=== PATIENT | male | born 1955 | race Caucasian/White ===

== ENCOUNTER 2022-10-10 10:46 | Inpatient (IN) ==
[2022-10-10 11:32] LABS: Basophils # (auto) 0.04 K/uL (0-0.2); Basophils % (auto) 0.2 %; Eosinophils # (auto) 0.01 K/uL (0-0.50); Eosinophils % (auto) 0.1 %; Hematocrit (blood only) 31.6 % (42.0-52.0); Hemoglobin 10.1 g/dl (14.0-18.0); Immature Granulocytes # (auto) 0.44 K/uL (0.01-0.20); Immature Granulocytes % (auto) 2.3 %; Lymphocytes # (auto) 1.18 K/uL (1.2-3.4); Lymphocytes % (auto) 6.1 %; Mean Corpuscular Hemoglobin 27.2 pg (25.0-34.0); Mean Corpuscular Volume 84.9 fL (80.0-100.0); Mean Platelet Volume 9.1 fL (9.4-12.4); Monocytes # (auto) 1.35 K/uL (0.11-0.59); Neutrophils # (auto) 16.19 K/uL (1.40-6.50); Neutrophils % (auto) 84.3 %; Platelet Count 337 K/uL (130-400); RDW Coefficient of Variation 16.2 % (11.5-14.5); RDW Standard Deviation 48.2 fL (36.4-46.3); Red Blood Count 3.72 M/uL (4.70-6.10); White Blood Count 19.21 K/ul (4.8-10.8)
[2022-10-10 11:44] LABS: INR 1.1 (0.9-1.1); Partial Thromboplastin Time 26.3 Seconds (21.0-31.0); Prothrombin Time 11.7 Seconds (9.0-12.0)
--- NOTE | 2022-10-10 11:45 | XRay Report ---
XR chest 1V not portable HISTORY: 66 years-old Male illness acute illness COMPARISON: None TECHNIQUE: PA view the chest FINDINGS: Cardiomediastinal and hilar silhouettes are within normal limits. No pneumothorax, large pleural effu moiz or overt pulmonary edema. Bilateral pleural-based lesions measure up to 5.4 cm at the left lung base and approximately 6 m and the lateral right hemithorax. Degenerative changes of the shoulders an d spine. IMPRESSION: Indeterminate bilateral pleural based lesions without comparison. Correlation with chest CT is needed. ACT 112: Negative or not required by law. The above report was generated using voice recognition software. It may contain grammatical, syntax o r spelling errors. Electronically signed by: Raghu Mojica M.D. 10/10/2022 11:44 AM
[2022-10-10 12:05] LABS: Albumin Level 2.7 gm/dl (3.4-5.0); Anion Gap 8 (3-11); Bilirubin,Total 0.7 mg/dl (0.2-1.0); Calcium 11.3 mg/dl (8.6-10.3); Carbon Dioxide 30 mmol/L (21-32); Chloride 93 mmol/L (98-107); Potassium 4.4 mmol/L (3.5-5.1); Sodium 131 mmol/L (136-145)
[2022-10-10 12:11] LABS: Alanine Aminotransferase 16 U/L (7-52); Albumin Globulin Ratio 0.7 (0.9-2); Alkaline Phosphatase 176 U/L (34-104); Aspartate Aminotransferase 66 U/L (13-39); BUN Creatinine Ratio 35.4 (10-20); Blood Urea Nitrogen 35 mg/dl (6-23); Est GFR (African American) 92.9 ml/min; Est GFR (Non-African American) 80.2 ml/min; Globulin 4.1 gm/dl (2.5-4.0); Glucose 101 mg/dl (70-99(Fasting)); Total Protein 6.8 gm/dl (6.0-8.3)
[2022-10-10] MEDS ORDERED: SODIUM CHLORIDE 0.9% 1000ML 1,000 ML IV ONE ×2 (13:20→17:36)
[2022-10-10] MEDS ORDERED: ACETAMINOPHEN 1,000 MG/100 ML VIAL IV STA (14:27)
[2022-10-10] MEDS ORDERED: ONDANSETRON INJ 2 MG/ML 2 ML VIAL IV STA (14:31)
[2022-10-10] MEDS ORDERED: FAMOTIDINE 20MG IV PUSH 20 MG/5 ML SYR IV STA (14:31)
[2022-10-10 14:40] LABS: Magnesium 2.1 mg/dl (1.7-2.4)
[2022-10-10 14:45] LABS: Phosphorus 4.2 mg/dl (2.5-4.9)
[2022-10-10] MEDS ORDERED: OPTIRAY 320 500ml IV ONE (15:40)
[2022-10-10 15:48] LABS: Bilirubin Direct 0.2 mg/dl (0-0.2)
--- NOTE | 2022-10-10 16:06 | CT Scan Report ---
CT head/brain wo con CLINICAL HISTORY: 66 years-old Male with confusion, nausea, ?lung mass. Acute nausea with altered me ntal status TECHNIQUE: Multiple axial CT images of the head were obtained without contrast. A dose lowering tech nique was utilized adhering to the principles of ALARA. CT DOSE: 1564.40 mGy.cm COMPARISON: CT cervical spine of same day FINDINGS: No acute intracranial hemorrhage, midline shift, intracranial mass, acute territorial ischemia or abn ormal extra-axial collection. Involutional changes with ventriculomegaly, possibly on an ex vacuo bas is with asymmetric dilation of the left lateral ventricle. Mild white matter hypodensities may repres ent a component of chronic microvascular ischemic disease. The calvarium is intact. No destructive bone lesions identified. The paranasal sinuses, mastoid air c ells, and middle ear cavities are clear. IMPRESSION: No acute intracranial abnormality. ACT 112: Negative or not required by law. The above report was generated using voice recognition software. It may contain grammatical, syntax o r spelling errors. Electronically signed by: Raghu Mojica M.D. 10/10/2022 4:05 PM
--- NOTE | 2022-10-10 16:11 | CT Scan Report ---
CT angio chest PE protocol CLINICAL HISTORY: back pain, sob, r/o PE TECHNIQUE: Multidetector row helical CT of the chest was performed with angiographic protocol. Yu l and sagittal reformations were obtained. Coronal and sagittal MIPS were obtained from the axial keke a set and were submitted for review. Automated dose lowering techniques and/or adjustment according to patient size were utilized for this exam. Comparison: None available at the time of this dictation. FINDINGS: Lungs and pleura: Atelectasis versus scarring is seen in the dependent portions of the lungs. There i s a small right pleural effusion. There is a 4 mm nodule in the lingula (series 8 image 213), 4 mm no dule in the left upper lobe (image 242), and 4 mm nodule in the right upper lobe (image 269). Heart and pericardium: Heart size is normal. No pericardial effusion. Vessels: No evidence of pulmonary embolism. Mediastinum and tk: Unremarkable. Chest wall and lower neck: There is a large, lobular, rim calcified thyroid nodule measuring 64 mm in diameter with rightward displacement of the trachea. Abdomen: For findings below the diaphragm, please refer to CT of the abdomen dated the same. Bones: There is vertebral plana of T6 as well as compression deformities of T2, T7, T10, and T11. Mul tilevel degenerative changes are seen. There are numerous foci in the ribs most prominently including bony destruction with a soft tissue mass measuring 5 mm in the anterior left third rib and a 29 mm s oft tissue mass with bony destruction at the lateral right seventh rib. Multiple foci of lytic diseas e are seen with pathologic fractures, for example the posterior lateral left third rib, the lateral l eft 10th rib, and the right lateral second and third rib. IMPRESSION: 1. No pulmonary embolus is seen. 2. Numerous lytic bony lesions are seen with associated soft tissue masses concerning for osseous me tastases. Please see CT abdomen pelvis performed same day for findings below the diaphragm including right renal soft tissue mass. 3. Large rim calcified thyroid nodule is seen, if not previously evaluated, ultrasound can be perfor med. 4. Additional findings as above. ACT 112: Positive. There are findings on this exam that require communication between the performing entity and the patient following Patient Test Result Information Act ([place] Act 112) guidelines. Electronically signed by: Jaren Lucia M.D. 10/10/2022 4:08 PM
--- NOTE | 2022-10-10 16:16 | CT Scan Report ---
CERVICAL SPINE CT CT DOSE: HISTORY: neck/back pain, ?lung mass TECHNIQUE: Multiaxial CT images of the cervical spine were performed and reformatted in the sagittal and coronal plane without the use of contrast. A dose lowering technique was utilized adhering to e principles of ALARA. COMPARISON: None. FINDINGS: Scattered subcentimeter nodules noted within the lung apices. A peripherally calcified cyst ic left thyroid nodule measuring 6.2 cm. This results in right deviation and mild narrowing of the pr oximal trachea. Prevertebral soft tissues and the C1-C2 interval are intact. There is a 1.4 cm lytic lesion and pathologic fracture involving the left C7 transverse process. No additional fractures iden tified within the cervical spine. Lytic lesion within the T2 vertebral body with a pathologic burst f racture demonstrating up to 50% loss of height centrally. No associated retropulsion. Lytic lesion wi th near complete destruction of the posterior elements of T4. This is only partially imaged on this s tudy. IMPRESSION: 1. Scattered lytic lesions within the lower cervical and thoracic spine consistent with metastatic di sease. 2. Pathologic nondisplaced fracture within the left C7 transverse process. 3. Pathologic burst fracture at T2. No associated retropulsion. 4. A 6.2 cm peripherally calcified cystic left thyroid nodule. ACT 112: Negative or not required by law. Electronically signed by: Mo Martinez M.D. 10/10/2022 4:14 PM
--- NOTE | 2022-10-10 16:28 | CT Scan Report ---
ABDOMEN AND PELVIS CT WITH IV CONTRAST CT DOSE: HISTORY: back pain, weight-loss TECHNIQUE: Multiaxial CT images of the abdomen and pelvis were performed following the use of intrave nous contrast. A dose lowering technique was utilized adhering to the principles of ALARA. COMPARISON STUDY: None. FINDINGS: Pathologic compression fractures at T10 and 11. Multiple scattered lytic lesions seen throu ghout the visualized osseous structures consistent with metastatic disease. There is a mild superior endplate pathologic compression fracture at L4. No associated retropulsion. Paravertebral and epidura l tumor extension within the lower thoracic spine which is partially imaged on this study. Small righ t pleural effusion is noted. No pneumoperitoneum. No pneumatosis. Pathologic fractures of the medial pubic bones which are nondisplaced. Small lytic lesions within the left femoral neck raises the possi bility of an impending fracture. Pathologic fracture within the large destructive lesion of the left iliac wing. Pathologic right anterior rib fractures are noted. Diffuse body wall edema is noted. An i ll-defined 2.4 cm lesion within the central aspects of the liver on image 71. This favors metastatic disease. The spleen, adrenal glands, and pancreas are unremarkable. Normal gallbladder. There is a sm all cyst within the lower pole the left kidney. There is a 3.9 cm the metastatic deposited within the right posterior perinephric space/retroperitoneal which results in destruction of the distal right 1 2th rib. There is a large heterogeneous infiltrative mass within the right kidney resulting in severe right-sided hydronephrosis. This mass also encases the right renal pelvis and proximal right ureter. This mass measures approximately 10 cm and invades into the right perinephric/retroperitoneal soft t issues. Compression versus invasion of the right renal vein. The IVC is compressed. No tumor thrombus identified within the IVC. However, there is thrombus seen within the left common and internal iliac veins best seen on image 238. Metastatic retroperitoneal lymphadenopathy is noted. The bladder is un remarkable. The prostate gland is enlarged. There is a right-sided hydrocele which is partially visua lized. No definite bowel wall thickening or obstruction. IMPRESSION: 1. There is is a large infiltrative right renal mass likely representing the primary malignancy. 2. Extensive metastatic disease as described above with destructive/lytic lesions and multiple pathol ogic fractures. 3. Thrombus of the left common and internal iliac veins. 4. Small lytic lesion within the left femoral neck favor an impending fracture. 5. Please refer to the the same day chest CT for further evaluation of the lung bases. ACT 112: Negative or not required by law. Electronically signed by: Mo Martinez M.D. 10/10/2022 4:25 PM
[2022-10-10] MEDS ORDERED: MoRPHine SULFATE 4 MG/ML 1 ML CARP\\VIAL IV PRN ×2 (16:36→20:30)
[2022-10-10] MEDS ORDERED: MoRPHine SULFATE 2 MG/ML CARP IV PRN (16:36)
[2022-10-10] MEDS ORDERED: cefTRIAXone SODIUM 2,000 MG/70 ML BAG IV STA (16:48)
[2022-10-10] MEDS ORDERED: Heparin IV Adult Wt-Based Standard WITH Bolus Protocol IV STA (16:48)
[2022-10-10 16:54] LABS: Appearance Urine Clear (Clear); Bacteria Urine Automated Negative (Negative); Bilirubin Urine Negative (Negative); Blood Urine Negative (Negative); Color Urine Dark Yellow; Glucose Urine UA Negative (Negative); Ketones Urine Trace (Negative); Leukocyte Esterase Urine Negative (Negative); Nitrite Urine Negative (Negative); Protein Urine 1+ (Negative); RBC Urine Automated 0-4 /hpf (0-4); Specific Gravity Urine 1.024 (1.000-1.030); Urobilinogen Urine Negative (Negative)
[2022-10-10 17:01] LABS: Sperm Urine Present (None Prsent)
--- NOTE | 2022-10-10 17:02 | Emergency Department Note ---
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 PLAN: Disposition: Admit MEDICAL DECISION MAKING: The patient is a 66-year-old gentleman, current alf inmate at [facility] with a history of chronic back pain related to remote trauma per the patient's report who presents to the emergency department via EMS [facility] for evaluation of worsening/progressive unintentional weight loss, acute on chronic back pain and weakness where he has become nonambulatory over the past week. The patient reports he has been unable to walk due to pain in his back and weakness in his legs. He has reportedly developed urinary incontinence over the past week as well. Attempts were made for outpatient testing however due to the rapid decline of the patient over the past week was referred to the emergency department. He denies cough, SOB, vomiting or diarrhea. He reports he has been eating but does not know why he was losing weight. On arrival the patient is fatigued appearing but no acute distress, afebrile stable vital signs. He is cachectic. He has midline tenderness to palpation of the upper and lower T-spine as well as upper lumbar spine. There is no bony crepitus. He exhibits 2/5 strength of bilateral lower extremities. Reflexes within normal limits. There is no clonus. EKG without overt acute ischemia. Chest x-ray with concern for pleural-based masses. WBC 19K with neutrophil predominance and left shift. H/H 10.1/31.6 without prior for comparison. Platelets within normal limits. Chemistry without metabolic acidosis. BUN is 35 with BUN/creatinine> 30 consistent with the patient's clinically dry appearance. Calcium is elevated at 11.3 and AST 66, nonspecific. Lipase is normal. Procalcitonin is elevated 1.38. TSH within normal limits. RNA, ESTEFANIA test was negative. CT of the head, C-spine, chest, abdomen pelvis were performed and demonstrates extensive metastatic disease with spine lesions and pathologic fractures noted with suspicion of primary renal cell carcinoma where there is a large heterogenous infiltrative mass of the right kidney resulting in severe right- sided hydronephrosis with a mass also encases the right renal pelvis and proximal ureter measures approximately 10 cm and invades into the right perinephric retroperitoneal soft tissues. Note is made of a burst fracture at T2 without retropulsion and pathologic fractures at T10 and 11.. Additional note of numerous foci in the ribs with bony destruction with a soft tissue mass measuring 5 mm in the anterior left third rib and 29 mm soft tissue mass with bony description at the lateral right seventh rib. Multiple pathologic fractures are seen including the lateral left third rib, lateral left 10th rib and right lateral second and third ribs. Note is made of superior endplate pathologic compression fracture at L4. Paravertebral and epidural tumor extension within the lower thoracic spine is partially imaged on this study. IVC is noted to be compressed adjacent to the renal mass and there is thrombus seen within the left common and internal iliac veins. Findings of newly diag nosed metastatic disease reviewed with the patient. Given leukocytosis with left shift and elevated procalcitonin ceftriaxone was ordered for possibility of superimposed bacterial pneumonia. Additionally, heparin ordered for iliac vein thrombus. Case was discussed with Becky Whiting PAC with Dr. Perez, [facility] hospitalist, who will evaluate the patient for admission. Case additionally discussed with Dr. Herron, orthopedic spine surgery. Appreciate consultation/recommendation. Given extensive metastatic disease patient is unlikely to be a surgical candidate. He will be available for inpatient team consultation. Given no unstable Cspine fx, no need for C-collar at this time. Pa tient to remain bed rest. Admitting team updated. Triage Nursing notes reviewed and agree them. Prior/outside medical records reviewed Vital Signs: reviewed Differential diagnosis: Musculoskeletal, disc herniation, fracture, metastatic disease, cord compression, discitis, sciatica, cauda equina, infection, aortic disease, renal colic, gastrointestinal, as well as other pathologies. ER treatment provided: See below. Diagnostics interpreted by me: ECG: Sinus tachycardia, 114 bpm, no ectopy, no overt ST elevation or depression, QTc 463, QRS 76 Cardiac Monitoring: An order for continuous cardiac monitoring was placed and demonstrated Sinus tachycardia, 114 bpm, no ectopy. Laboratory studies: See below Imaging studies: See below Consultation(s): Becky Whiting PAC with Dr. Perez, [facility] hospitalist. HPI: The patient is a 66-year-old gentleman, current alf inmate at [facility] with a history of chronic back pain related to remote trauma per the patient's report who presents to the emergency department via EMS [facility] for evaluation of worsening/progressive unintentional weight loss, acute on chronic back pain and weakness where he has become nonambulatory over the past week. The patient reports he has been unable to walk due to pain in his back and weakness in his legs. He has reportedly developed urinary incontinence over the past week as well. Attempts were made for outpatient testing however due to the rapid decline of the patient over the past week was referred to the emergency department. He denies cough, SOB, vomiting or diarrhea. He reports he has been eating but does not know why he was losing weight. ROS: See above HPI for pertinent positives & negatives. A total of 10 systems reviewed and were otherwise negative. VITALS:See Below PHYSICAL EXAMINATION: GENERAL: Awake, alert, fatigued/cachectic-appearing, in no distress HENT: Normocephalic, atraumatic. Oropharynx with dry mucous membranes and otherwise unremarkable. EYES: Normal conjunctiva. Sclera non-icteric. NECK: Supple. No nuchal rigidity. FROM. No JVD. RESPIRATORY: Clear to auscultation. CARDIAC: Regular rate, normal rhythm. Extremities warm and well perfused. Pulses equal. ABDOMEN: Soft, non-distended. No tenderness to palpation. No rebound or guarding. No masses. RECTAL: Deferred. MUSCULOSKELETAL: Chest examination reveals mild bilateral lateral lower CW tenderness. Midline tenderness to palpation of the upper and lower T-spine as well as upper lumbar spine. There is no bony crepitus. LOWER EXTREMITIES: Calves are equal size bilaterally and non-tender. No edema. No discoloration. NEURO: He exhibits 2/5 strength of bilateral lower extremities. 4+/5 strength of BUE. Reflexes within normal limits. There is no clonus. SKIN: No rash or jaundice noted. ED COURSE: Critical Care: I have personally spent greater than 75 minutes of critical care time in the d [facility] management of this patient. This includes bedside care, interpretation of diagnostic studies, and testing, discussion with consultants, patient, and family members, and other required patient management activities. This 75 minutes is in excess of all separately billable procedures. Tyree Heck MD Past Med/Surg History Medical History Chronic back pain History of alcohol use History of tobacco use Surgical History No significant past surgical history Family History Other Cancer Social History Smoking Status: Former smoker Tobacco Type: Cigarettes packs per day: 3; Second Hand Exposure: Yes; Do You Dip or Chew Tobacco: No; Tobacco Cessation Education Requested by Patient: No Hx Alcohol Use: No (former) Hx Substance Use: No Preferred Language: [place] Communication Ability: Effective Tube Tester Required: No Beliefs That Will Affect Care: None Current Living Situation: Other Current Living Situation Comment: JANESSA Delgadillo Other Information That Helps Us Care for You: No Feels Safe at Home: Declines to Answer Assistive Devices: None Allergies Allergies Allergy/AdvReac Type Severity Reaction Status Date / Time No Known Allergies Allergy Verified 10/10/22 15:02 Home Meds Home Medications Medication Instructions Recorded Confirmed No Known Home Medications 10/10/22 10/10/22 Results & Data (ED) Vital Signs Vital Signs - 24 hr 10/10/22 11:01 Temperature 36.8 C Temperature Source Temporal Artery Scan Pulse Rate 106 H Respiratory Rate 18 Respiratory Effort / Characteristics Non-Labored Spontaneous Respiratory Depth Normal Respiratory Pattern Regular Blood Pressure 106/76 Blood Pressure Mean 86 Blood Pressure Position Sitting Pulse Oximetry 97 Oxygen Delivery Method Room Air Sepsis Recent Fever Within 48 Hours No Sepsis New/Unexplained Change in Mental Status No Sepsis Action Taken by Nursing No Action Required Laboratory Data Attestation: I reviewed the patient's lab results. 10/10/22 11:17 10/10/22 11:17 Lab Results 10/10/22 10/10/22 10/10/22 Range/Units 11:17 11:17 11:17 WBC 19.21 H (4.8-10.8) K/ul RBC 3.72 L (4.70-6.10) M/uL Hgb 10.1 L (14.0-18.0) g/dl Hct 31.6 L (42.0-52.0) % MCV 84.9 (80.0-100.0) fL MCH 27.2 (25.0-34.0) pg MCHC 32.0 (32.0-36.0) g/dL RDW Std Deviation 48.2 H (36.4-46.3) fL RDW Coeff of Ana 16.2 H (11.5-14.5) % Plt Count 337 (130-400) K/uL MPV 9.1 L (9.4-12.4) fL Immature Gran % (Auto) 2.3 % Neut % (Auto) 84.3 % Lymph % (Auto) 6.1 % [place] % (Auto) 7.0 % Eos % (Auto) 0.1 % Baso % (Auto) 0.2 % Neut # (Auto) 16.19 H (1.40-6.50) K/uL Lymph # (Auto) 1.18 L (1.2-3.4) K/uL [place] # (Auto) 1.35 H (0.11-0.59) K/uL Eos # (Auto) 0.01 (0-0.50) K/uL Baso # (Auto) 0.04 (0-0.2) K/uL Immature Gran # (Auto) 0.44 H (0.01-0.20) K/uL PT 11.7 (9.0-12.0) Seconds INR 1.1 (0.9-1.1) APTT 26.3 (21.0-31.0) Seconds PTT Ratio 1.0 Sodium 131 L (136-145) mmol/L Potassium 4.4 (3.5-5.1) mmol/L Chloride 93 L (98-107) mmol/L Carbon Dioxide 30 (21-32) mmol/L Anion Gap 8 (3-11) BUN 35 H (6-23) mg/dl Creatinine 0.99 (0.6-1.4) mg/dl Est Cr Clr Drug Dosing Not Reportable Est GFR ( Amer) 92.9 ml/min Est GFR (Non-Af Amer) 80.2 ml/min BUN/Creatinine Ratio 35.4 H (10-20) Glucose 101 H (70-99(Fasting)) mg/dl Lactate (0.4-2.0) mmol/L Calcium 11.3 H (8.6-10.3) mg/dl Phosphorus (2.5-4.9) mg/dl Magnesium (1.7-2.4) mg/dl Total Bilirubin 0.7 (0.2-1.0) mg/dl Direct Bilirubin (0-0.2) mg/dl AST 66 H (13-39) U/L ALT 16 (7-52) U/L Alkaline Phosphatase 176 H (34-104) U/L Total Protein 6.8 (6.0-8.3) gm/dl Albumin 2.7 L (3.4-5.0) gm/dl Globulin 4.1 H (2.5-4.0) gm/dl Albumin/Globulin Ratio 0.7 L (0.9-2) Lipase (11-82) U/L Procalcitonin (0-0.5) ng/ml TSH (0.300-4.500) uIu/ml Urine Color Urine Appearance (Clear) Urine pH (4.5-7.5) Ur Specific [place] (1.000-1.030) Urine Protein (Negative) Urine Glucose (UA) (Negative) Urine Ketones (Negative) Urine Blood (Negative) Urine Nitrite (Negative) Urine Bilirubin (Negative) Urine Urobilinogen (Negative) Ur Leukocyte Esterase (Negative) Urine WBC (Auto) (0-5) /hpf Urine RBC (Auto) (0-4) /hpf U Hyaline Cast (Auto) (0-5) /lpf U Epithel Cells (Auto) (0-5) /lpf Urine Bacteria (Auto) (Negative) Urine Sperm (None Prsent) SARS-CoV-2, RNA, NAAT (NEGATIVE) 10/10/22 10/10/22 10/10/22 Range/Units 13:20 13:20 13:45 WBC (4.8-10.8) K/ul RBC (4.70-6.10) M/uL Hgb (14.0-18.0) g/dl Hct (42.0-52.0) % MCV (80.0-100.0) fL MCH (25.0-34.0) pg MCHC (32.0-36.0) g/dL RDW Std Deviation (36.4-46.3) fL RDW Coeff of Ana (11.5-14.5) % Plt Count (130-400) K/uL MPV (9.4-12.4) fL Immature Gran % (Auto) % Neut % (Auto) % Lymph % (Auto) % [place] % (Auto) % Eos % (Auto) % Baso % (Auto) % Neut # (Auto) (1.40-6.50) K/uL Lymph # (Auto) (1.2-3.4) K/uL [place] # (Auto) (0.11-0.59) K/uL Eos # (Auto) (0-0.50) K/uL Baso # (Auto) (0-0.2) K/uL Immature Gran # (Auto) (0.01-0.20) K/uL PT (9.0-12.0) Seconds INR (0.9-1.1) APTT (21.0-31.0) Seconds PTT Ratio Sodium (136-145) mmol/L Potassium (3.5-5.1) mmol/L Chloride (98-107) mmol/L Carbon Dioxide (21-32) mmol/L Anion Gap (3-11) BUN (6-23) mg/dl Creatinine (0.6-1.4) mg/dl Est Cr Clr Drug Dosing Est GFR ( Amer) ml/min Est GFR (Non-Af Amer) ml/min BUN/Creatinine Ratio (10-20) Glucose (70-99(Fasting)) mg/dl Lactate (0.4-2.0) mmol/L Calcium (8.6-10.3) mg/dl Phosphorus 4.2 (2.5-4.9) mg/dl Magnesium 2.1 (1.7-2.4) mg/dl Total Bilirubin (0.2-1.0) mg/dl Direct Bilirubin (0-0.2) mg/dl AST (13-39) U/L ALT (7-52) U/L Alkaline Phosphatase (34-104) U/L Total Protein (6.0-8.3) gm/dl Albumin (3.4-5.0) gm/dl Globulin (2.5-4.0) gm/dl Albumin/Globulin Ratio (0.9-2) Lipase (11-82) U/L Procalcitonin (0-0.5) ng/ml TSH 3.959 (0.300-4.500) uIu/ml Urine Color Urine Appearance (Clear) Urine pH (4.5-7.5) Ur Specific [place] (1.000-1.030) Urine Protein (Negative) Urine Glucose (UA) (Negative) Urine Ketones (Negative) Urine Blood (Negative) Urine Nitrite (Negative) Urine Bilirubin (Negative) Urine Urobilinogen (Negative) Ur Leukocyte Esterase (Negative) Urine WBC (Auto) (0-5) /hpf Urine RBC (Auto) (0-4) /hpf U Hyaline Cast (Auto) (0-5) /lpf U Epithel Cells (Auto) (0-5) /lpf Urine Bacteria (Auto) (Negative) Urine Sperm (None Prsent) SARS-CoV-2, RNA, NAAT NEGATIVE (NEGATIVE) 10/10/22 10/10/22 10/10/22 Range/Units 14:41 14:41 14:47 WBC (4.8-10.8) K/ul RBC (4.70-6.10) M/uL Hgb (14.0-18.0) g/dl Hct (42.0-52.0) % MCV (80.0-100.0) fL MCH (25.0-34.0) pg MCHC (32.0-36.0) g/dL RDW Std Deviation (36.4-46.3) fL RDW Coeff of Ana (11.5-14.5) % Plt Count (130-400) K/uL MPV (9.4-12.4) fL Immature Gran % (Auto) % Neut % (Auto) % Lymph % (Auto) % [place] % (Auto) % Eos % (Auto) % Baso % (Auto) % Neut # (Auto) (1.40-6.50) K/uL Lymph # (Auto) (1.2-3.4) K/uL [place] # (Auto) (0.11-0.59) K/uL Eos # (Auto) (0-0.50) K/uL Baso # (Auto) (0-0.2) K/uL Immature Gran # (Auto) (0.01-0.20) K/uL PT (9.0-12.0) Seconds INR (0.9-1.1) APTT (21.0-31.0) Seconds PTT Ratio Sodium (136-145) mmol/L Potassium (3.5-5.1) mmol/L Chloride (98-107) mmol/L Carbon Dioxide (21-32) mmol/L Anion Gap (3-11) BUN (6-23) mg/dl Creatinine (0.6-1.4) mg/dl Est Cr Clr Drug Dosing Est GFR ( Amer) ml/min Est GFR (Non-Af Amer) ml/min BUN/Creatinine Ratio (10-20) Glucose (70-99(Fasting)) mg/dl Lactate 3.0 H* (0.4-2.0) mmol/L Calcium (8.6-10.3) mg/dl Phosphorus (2.5-4.9) mg/dl Magnesium (1.7-2.4) mg/dl Total Bilirubin (0.2-1.0) mg/dl Direct Bilirubin 0.2 (0-0.2) mg/dl AST (13-39) U/L ALT (7-52) U/L Alkaline Phosphatase (34-104) U/L Total Protein (6.0-8.3) gm/dl Albumin (3.4-5.0) gm/dl Globulin (2.5-4.0) gm/dl Albumin/Globulin Ratio (0.9-2) Lipase 14 (11-82) U/L Procalcitonin 1.38 H (0-0.5) ng/ml TSH (0.300-4.500) uIu/ml Urine Color Urine Appearance (Clear) Urine pH (4.5-7.5) Ur Specific [place] (1.000-1.030) Urine Protein (Negative) Urine Glucose (UA) (Negative) Urine Ketones (Negative) Urine Blood (Negative) Urine Nitrite (Negative) Urine Bilirubin (Negative) Urine Urobilinogen (Negative) Ur Leukocyte Esterase (Negative) Urine WBC (Auto) (0-5) /hpf Urine RBC (Auto) (0-4) /hpf U Hyaline Cast (Auto) (0-5) /lpf U Epithel Cells (Auto) (0-5) /lpf Urine Bacteria (Auto) (Negative) Urine Sperm (None Prsent) SARS-CoV-2, RNA, NAAT (NEGATIVE) 03/30/23 03/30/23 Range/Units 16:05 17:22 WBC (4.8-10.8) K/ul RBC (4.70-6.10) M/uL Hgb (14.0-18.0) g/dl Hct (42.0-52.0) % MCV (80.0-100.0) fL MCH (25.0-34.0) pg MCHC (32.0-36.0) g/dL RDW Std Deviation (36.4-46.3) fL RDW Coeff of Ana (11.5-14.5) % Plt Count (130-400) K/uL MPV (9.4-12.4) fL Immature Gran % (Auto) % Neut % (Auto) % Lymph % (Auto) % [place] % (Auto) % Eos % (Auto) % Baso % (Auto) % Neut # (Auto) (1.40-6.50) K/uL Lymph # (Auto) (1.2-3.4) K/uL [place] # (Auto) (0.11-0.59) K/uL Eos # (Auto) (0-0.50) K/uL Baso # (Auto) (0-0.2) K/uL Immature Gran # (Auto) (0.01-0.20) K/uL PT (9.0-12.0) Seconds INR (0.9-1.1) APTT (21.0-31.0) Seconds PTT Ratio Sodium (136-145) mmol/L Potassium (3.5-5.1) mmol/L Chloride (98-107) mmol/L Carbon Dioxide (21-32) mmol/L Anion Gap (3-11) BUN (6-23) mg/dl Creatinine (0.6-1.4) mg/dl Est Cr Clr Drug Dosing Est GFR ( Amer) ml/min Est GFR (Non-Af Amer) ml/min BUN/Creatinine Ratio (10-20) Glucose (70-99(Fasting)) mg/dl Lactate 2.7 H* (0.4-2.0) mmol/L Calcium (8.6-10.3) mg/dl Phosphorus (2.5-4.9) mg/dl Magnesium (1.7-2.4) mg/dl Total Bilirubin (0.2-1.0) mg/dl Direct Bilirubin (0-0.2) mg/dl AST (13-39) U/L ALT (7-52) U/L Alkaline Phosphatase (34-104) U/L Total Protein (6.0-8.3) gm/dl Albumin (3.4-5.0) gm/dl Globulin (2.5-4.0) gm/dl Albumin/Globulin Ratio (0.9-2) Lipase (11-82) U/L Procalcitonin (0-0.5) ng/ml TSH (0.300-4.500) uIu/ml Urine Color Dark Yellow Urine Appearance Clear (Clear) Urine pH 5.0 (4.5-7.5) Ur Specific [place] 1.024 (1.000-1.030) Urine Protein 1+ H (Negative) Urine Glucose (UA) Negative (Negative) Urine Ketones Trace H (Negative) Urine Blood Negative (Negative) Urine Nitrite Negative (Negative) Urine Bilirubin Negative (Negative) Urine Urobilinogen Negative (Negative) Ur Leukocyte Esterase Negative (Negative) Urine WBC (Auto) 1-5 (0-5) /hpf Urine RBC (Auto) 0-4 (0-4) /hpf U Hyaline Cast (Auto) 10-30 H (0-5) /lpf U Epithel Cells (Auto) 10-20 H (0-5) /lpf Urine Bacteria (Auto) Negative (Negative) Urine Sperm Present A (None Prsent) SARS-CoV-2, RNA, NAAT (NEGATIVE) Administered Medications Heparin Sodium/Dextrose (Heparin Sodium/Dextrose) 25,000 units in 500 mls @ 21 mls/hr IV .[id number] [facility]; Protocol Stop: 11/09/22 17:14 Last Admin: 10/10/22 18:15 Dose: 1,050 units/hr, 21 mls/hr Documented By: CAITW Co-signed By: ROBLES Piperacillin Sod/Tazobactam (Sod 3.375 gm/ Dextrose) 115 mls @ 28.75 mls/hr IV Q8H [facility]; Protocol Stop: 10/17/22 21:59 Last Admin: 10/10/22 21:34 Dose: 28.8 mls/hr Documented By: FLOR Sodium Chloride (Nss 1000ml) 1,000 mls @ 125 mls/hr IV .Q8H [facility] Stop: 10/11/22 12:29 Last Admin: 10/10/22 21:34 Dose: 125 mls/hr Documented By: FLOR Morphine Sulfate (Morphine Sulfate 4 Mg/Ml 1 Ml Carp\Vial) 2 mg IV Q4H PRN PRN Reason: Pain Stop: 10/24/22 20:29 Last Admin: 10/10/22 21:35 Dose: 2 mg Documented By: FLOR Discontinued Medications Heparin Sodium (Porcine) (Heparin Sod (Porcine) 1000 Unit/Ml) 5,000 units IV NOW ONE Stop: 10/10/22 17:31 Last Admin: 10/10/22 18:14 Dose: 5,000 units Documented By: HUA Co-signed By: ROBLES Sodium Chloride (Nss 1000ml) 1,000 mls @ 999 mls/hr IV .Q1H1M ONE Stop: 10/10/22 14:20 Last Infusion: 10/10/22 14:45 Dose: 0 mls/hr Documented By: Admin: 10/10/22 13:44 Dose: 999 mls/hr Documented By: HUA Acetaminophen (Ofirmev) 1,000 mg in 100 mls @ 400 mls/hr IV NOW STA Stop: 10/10/22 14:41 Last Infusion: 10/10/22 15:04 Dose: 0 mls/hr Documented By: Admin: 10/10/22 14:49 Dose: 400 mls/hr Documented By: HUA Famotidine (Pepcid 20mg Iv Push) 20 mg in 5 mls @ 2.5 mls/min IV NOW STA Stop: 10/10/22 14:32 Last Admin: 10/10/22 14:49 Dose: 2.5 mls/min Documented By: HUA Ceftriaxone Sodium (Rocephin) 2,000 mg in 70 mls @ 140 mls/hr IV NOW STA Stop: 10/10/22 17:17 Last Infusion: 10/10/22 18:20 Dose: 0 mls/hr Documented By: Admin: 10/10/22 17:50 Dose: 140 mls/hr Documented By: ROBLES Sodium Chloride (Nss 1000ml) 1,000 mls @ 999 mls/hr IV .Q1H1M ONE Stop: 10/10/22 18:36 Last Infusion: 10/10/22 18:43 Dose: 0 mls/hr Documented By: Admin: 10/10/22 17:42 Dose: 999 mls/hr Documented By: ROBLES Zoledronic Acid 4 mg/ Sodium (Chloride) 105 mls @ 210 mls/hr IV NOW ONE Stop: 10/10/22 21:14 Last Infusion: 10/10/22 22:22 Dose: 0 mls/hr Documented By: Admin: 10/10/22 21:35 Dose: 210 mls/hr Documented By: FLOR Ioversol (Optiray 320 500ml) 117 ml IV ONCE ONE Stop: 10/10/22 15:41 Last Admin: 10/10/22 15:41 Dose: 117 ml Documented By: GUERDA Morphine Sulfate (Morphine Sulfate 4 Mg/Ml 1 Ml Carp\Vial) 4 mg IV Q2H PRN PRN Reason: Severe Pain (Rating 7,8,9,10) Stop: 10/24/22 16:35 Last Admin: 10/10/22 17:42 Dose: 4 mg Documented By: ROBLES Ondansetron HCl (Ondansetron Inj 2 Mg/Ml 2 Ml Vial) 4 mg IV NOW STA Stop: 10/10/22 14:32 Last Admin: 10/10/22 14:49 Dose: 4 mg Documented By: HUA Imaging Data Radiologist's Impression: Chest X-Ray 10/10/22 11:06 XR chest 1V not portable HISTORY: 66 years-old Male illness acute illness COMPARISON: None TECHNIQUE: PA view the chest FINDINGS: Cardiomediastinal and hilar silhouettes are within normal limits. No pneumothorax, large pleural effusion or overt pulmonary edema. Bilateral pleural-based lesions measure up to 5.4 cm at the left lung base and approximately 6 m and the lateral right hemithorax. Degenerative changes of the shoulders and spine. IMPRESSION: Indeterminate bilateral pleural based lesions without comparison. Correlation with chest CT is needed. ACT 112: Negative or not required by law. The above report was generated using voice recognition software. It may contain grammatical, syntax or spelling errors. Electronically signed by: Raghu Mojica M.D. 10/10/2022 11:44 AM Abdomen/Pelvis CT 10/10/22 14:[address] WITH IV CONTRAST CT DOSE: HISTORY: back pain, weight-loss TECHNIQUE: Multiaxial CT images of the abdomen and pelvis were performed following the use of intravenous contrast. A dose lowering technique was utilized adhering to the principles of ALARA. COMPARISON STUDY: None. FINDINGS: Pathologic compression fractures at T10 and 11. Multiple scattered lytic lesions seen throughout the visualized osseous structures consistent with metastatic disease. There is a mild superior endplate pathologic compression fracture at L4. No associated retropulsion. Paravertebral and epidural tumor extension within the lower thoracic spine which is partially imaged on this study. Small right pleural effusion is noted. No pneumoperitoneum. No pneumatosis. Pathologic fractures of the medial pubic bones which are nondisplaced. Small lytic lesions within the left femoral neck raises the possibility of an impending fracture. Pathologic fracture within the large destructive lesion of the left iliac wing. Pathologic right anterior rib fractures are noted. Diffuse body wall edema is noted. An ill-defined 2.4 cm lesion within the central aspects of the liver on image 71. This favors metastatic disease. The spleen, adrenal glands, and pancreas are unremarkable. Normal gallbladder. There is a small cyst within the lower pole the left kidney. There is a 3.9 cm the metastatic deposited within the right posterior perinephric space/retroperitoneal which results in destruction of the distal right 12th rib. There is a large heterogeneous infiltrative mass within the right kidney resulting in severe right-sided hydronephrosis. This mass also encases the right renal pelvis and proximal right ureter. This mass measures approximately 10 cm and invades into the right perinephric/retroperitoneal soft tissues. Compression versus invasion of the right renal vein. The IVC is compressed. No tumor thrombus identified within the IVC. However, there is thrombus seen within the left common and internal iliac veins best seen on image 238. Metastatic retroperitoneal lymphadenopathy is noted. The bladder is unrema rkable. The prostate gland is enlarged. There is a right-sided hydrocele which is partially visualized. No definite bowel wall thickening or obstruction. IMPRESSION: 1. There is is a large infiltrative right renal mass likely representing the primary malignancy. 2. Extensive metastatic disease as described above with destructive/lytic lesions and multiple pathologic fractures. 3. Thrombus of the left common and internal iliac veins. 4. Small lytic lesion within the left femoral neck favor an impending fracture. 5. Please refer to the the same day chest CT for further evaluation of the lung bases. ACT 112: Negative or not required by law. Electronically signed by: Mo Martinez M.D. 10/10/2022 4:25 PM Chest CTA 10/10/22 14:27 CT angio chest PE protocol CLINICAL HISTORY: back pain, sob, r/o PE TECHNIQUE: Multidetector row helical CT of the chest was performed with angiographic protocol. Coronal and sagittal reformations were obtained. Coronal and sagittal MIPS were obtained from the axial data set and were submitted for review. Automated dose lowering techniques and/or adjustment according to patient size were utilized for this exam. Comparison: None available at the time of this dictation. FINDINGS: Lungs and pleura: Atelectasis versus scarring is seen in the dependent portions of the lungs. There is a small right pleural effusion. There is a 4 mm nodule in the lingula (series 8 image 213), 4 mm nodule in the left upper lobe (image 242), and 4 mm nodule in the right upper lobe (image 269). Heart and pericardium: Heart size is normal. No pericardial effusion. Vessels: No evidence of pulmonary embolism. Mediastinum and tk: Unremarkable. Chest wall and lower neck: There is a large, lobular, rim calcified thyroid nodule measuring 64 mm in diameter with rightward displacement of the trachea. Abdomen: For findings below the diaphragm, please refer to CT of the abdomen dated the same. Bones: There is vertebral plana of T6 as well as compression deformities of T2, T7, T10, and T11. Multilevel degenerative changes are seen. There are numerous foci in the ribs most prominently including bony destruction with a soft tissue mass measuring 5 mm in the anterior left third rib and a 29 mm soft tissue mass with bony destruction at the lateral right seventh rib. Multiple foci of lytic disease are seen with pathologic fractures, for example the posterior lateral left third rib, the lateral left 10th rib, and the right lateral second and third rib. IMPRESSION: 1. No pulmonary embolus is seen. 2. Numerous lytic bony lesions are seen with associated soft tissue masses concerning for osseous metastases. Please see CT abdomen pelvis performed same day for findings below the diaphragm including right renal soft tissue mass. 3. Large rim calcified thyroid nodule is seen, if not previously evaluated, ultrasound can be performed. 4. Additional findings as above. ACT 112: Positive. There are findings on this exam that require communication between the performing entity and the patient following Patient Test Result Information Act ([place] Act 112) guidelines. Electronically signed by: Jaren Lucia M.D. 10/10/2022 4:[address] 10/10/22 14:[address] DOSE: HISTORY: neck/back pain, ?lung mass TECHNIQUE: Multiaxial CT images of the cervical spine were performed and reformatted in the sagittal and coronal plane without the use of contrast. A dose lowering technique was utilized adhering to the principles of ALARA. COMPARISON: None. FINDINGS: Scattered subcentimeter nodules noted within the lung apices. A peripherally calcified cystic left thyroid nodule measuring 6.2 cm. This results in right deviation and mild narrowing of the proximal trachea. Prevertebral soft tissues and the C1-C2 interval are intact. There is a 1.4 cm lytic lesion and pathologic fracture involving the left C7 transverse process. No additional fr actures identified within the cervical spine. Lytic lesion within the T2 vertebral body with a pathologic burst fracture demonstrating up to 50% loss of height centrally. No associated retropulsion. Lytic lesion with near complete destruction of the posterior elements of T4. This is only partially imaged on this study. IMPRESSION: 1. Scattered lytic lesions within the lower cervical and thoracic spine consistent with metastatic disease. 2. Pathologic nondisplaced fracture within the left C7 transverse process. 3. Pathologic burst fracture at T2. No associated retropulsion. 4. A 6.2 cm peripherally calcified cystic left thyroid nodule. ACT 112: Negative or not required by law. Electronically signed by: Mo Martinez M.D. 10/10/2022 4:[address] 10/10/22 14:31 CT head/brain wo con CLINICAL HISTORY: 66 years-old Male with confusion, nausea, ?lung mass. Acute nausea with altered mental status TECHNIQUE: Multiple axial CT images of the head were obtained without contrast. A dose lowering technique was utilized adhering to the principles of ALARA. CT DOSE: 1564.40 mGy.cm COMPARISON: CT cervical spine of same day FINDINGS: No acute intracranial hemorrhage, midline shift, intracranial mass, acute territorial ischemia or abnormal extra-axial collection. Involutional changes with ventriculomegaly, possibly on an ex vacuo basis with asymmetric dilation of the left lateral ventricle. Mild white matter hypodensities may represent a component of chronic microvascular ischemic disease. The calvarium is intact. No destructive bone lesions identified. The paranasal sinuses, mastoid air cells, and middle ear cavities are clear. IMPRESSION: No acute intracranial abnormality. ACT 112: Negative or not required by law. The above report was generated using voice recognition software. It may contain grammatical, syntax or spelling errors. Electronically signed by: Raghu Mojica M.D. 10/10/2022 4:05 PM Discharge Plan Visit Data Chief Complaint: Altered Mental Status Stated Complaint: ALTERED MENTAL STATUS,WEAKNESS ED Provider: Tyree Heck Discharge Problem: Metastatic cancer, Urinary retention, Leukocytosis, Weakness, Acute exacerbation of chronic low back pain, Hypercalcemia, Ambulatory dysfunction, Pathologic rib fracture, Burst fracture of thoracic vertebra, Recent unintentional weight loss over several months, Deep vein thrombosis of iliac vein of left lower extremity Patient Disposition: Admitted As Inpatient Discharge Instructions Interventions: ED Discharge Assessment Last Done: 10/10/22 19:37 Metastatic cancer Qualifiers: Area of secondary neoplastic involvement: bone Qualified Code(s): C79.51 - Secondary malignant neoplasm of bone Deep vein thrombosis of iliac vein of left lower extremity Qualifiers: Chronicity: acute Qualified Code(s): I82.422 - Acute embolism and thrombosis of left iliac vein
[2022-10-10] MEDS ORDERED: HEPARIN SOD (PORCINE) 1000 UNIT/ML IV ONE ×2 (17:04→17:30)
--- NOTE | 2022-10-10 17:12 | History & Physical Report ---
Date of Service October 10, 2022 Assessment & Plan (1) Metastatic cancer: (2) Weakness: (3) Acute exacerbation of chronic low back pain: (4) Ambulatory dysfunction: (5) Pathologic rib fracture: (6) Burst fracture of thoracic vertebra: (7) Hypercalcemia: (8) Urinary retention: (9) Leukocytosis: (10) History of alcohol use: (11) History of tobacco use: Plan This is a 66-year-old male from [facility] with PMH of chronic back pain who presents for evaluation of worsening acute on chronic back pain, weakness, ambulatory dysfunction over the past week and was found to have extensive metastatic cancer with likely renal mass as primary malignancy. Worsening weakness Acute on chronic back pain Extensive metastatic cancer with likely renal mass as primary malignancy In setting of worsening back pain, ambulatory dysfunction, weakness Extensive metastatic disease with destructive/lytic lesions and multiple pathologic fractures, soft tissue involvement CT abd/pelvis with * a large infiltrative right renal mass likely representing the primary malignancy * extensive metastatic disease as described above with destructive/lytic lesions and multiple pathologic fractures * thrombus of the left common and internal iliac veins * small lytic lesion within the left femoral neck favor an impending fracture Chest CTA with numerous lytic bony lesions are seen with associated soft tissue masses concerning for osseous metastases. Large rim calcified thyroid nodule is seen, if not previously evaluated, ultrasound can be performed Consulted heme onc and palliative services for extensive new cancer diagnosis, prognosis and goals/treatment Pain control for multiple pathologic fractures Bed bound status until able to be evaluated by ortho spine Continue IV heparin for thrombus of L common and internal iliac veins. May need vascular input during admission. Monitor closely for any acute bleeding Considered tumor lysis syndrome given extensive disease but no lyte abnormalities c/w syndrome - continue to monitor T2 pathologic burst fracture Cervical spine CT with * Scattered lytic lesions within the lower cervical and thoracic spine consistent with metastatic disease. * Pathologic nondisplaced fracture within the left C7 transverse process. * Pathologic burst fracture at T2. No associated retropulsion. * A 6.2 cm peripherally calcified cystic left thyroid nodule. ED provider discussed case with Dr. Herron given T2 burst fracture - feels patient is an unlikely surgical candidate given extent of disease. No need for C-collar, bed rest, sit up as comfortable, will evaluate tomorrow Hypercalcemia In setting of metastatic cancer with multiple lytic lesions, also dehydration likely a component Serum calcium 11.3, obtain ionized calcium in a.m. Given 1 time dose of zolendronic acid Hypercalcemia work-up in process Urinary retention Urinary retention noted on imaging, hydronephrosis in setting of large right renal mass Urias catheter placed, monitor output Leukocytosis Meeting SIRs criteria with WBC 19k, HR 105, lactate 3, procal of 1.38 but no clear infectious source Could be reactive given extensive cancer burden, dehydration Covering with empiric Zosyn, follow blood culture History of significant tobacco use, alcohol use Endorses smoking 3 packs/day prior to time and JANESSA Delgadillo, unable to characterize length of time smoking. Also endorsing heavy alcohol use in the past DVT Ppx: IV heparin Code status: Full code PCP: JANESSA Delgadillo Dispo: Admitted to PCU Patient seen in collaboration with Dr. Perez. Please see addendum. I spent a total of 80 minutes coordinating, documenting, and providing care for this patient excluding time spent in the performance of separately billed services. History of Present Illness Chief Complaint: Ambulatory dysfunction, weight loss Primary Care Provider: JANESSA Delgadillo This is a 66-year-old male from [facility] with PMH of chronic back pain who presents for evaluation of worsening acute on chronic back pain, weakness, ambulatory dysfunction over the past week. Patient is a poor historian. States he has had back pain for decades but it got worse over the past year. Also endorses associated weakness and unintentional weight loss over the past year. States he has lost 100 pounds but cannot clarify the time in which this occurred. Has intermittent hematuria but states this has been going on for years. Over the past week, weakness has become more profound to the point that patient is having to grab onto guerrero to get around. Denies any falls. Was going to have outpatient testing done but due to significant decline, was brought in from [facility] for further evaluation. Significant history of smoking 3 packs/day but cannot answer when he started or stopped smoking. Also has history of heavy alcohol use prior to time in group home. Endorses some issues with urinary retention but denies dysuria. No fever, chills, lightheadedness, chest pain, shortness of breath, nausea, vomiting, abdominal pain, dysuria, diarrhea or constipation. Became tearful during interview on multiple occasions. Denies any known past medical history of diabetes, high blood pressure, stroke, cancer or kidney disease. Knows that cancer runs in his family but not sure what kind. Allergies Allergy/AdvReac Type Severity Reaction Status Date / Time No Known Allergies Allergy Verified 10/10/22 15:02 Home Medications Medication Instructions Recorded Confirmed Type No Known Home Medications 10/10/22 10/10/22 History Past Med/Surg History Medical History Chronic back pain History of alcohol use History of tobacco use Surgical History No significant past surgical history Family History Other Cancer Social History Smoking Status: Former smoker Tobacco Type: Cigarettes packs per day: 3; Hx Alcohol Use: Yes (heavy use in the past ) Preferred Language: Czech Review of Systems Review of Systems: At least ten systems reviewed and negative except as noted in the HPI. Physical Exam Physical Exam: Please see Dr. Perez's addendum for physical exam. Results & Data Results & Data Vital Signs (Past 12 Hours) Vital Signs Temp Pulse Resp BP Pulse Ox O2 Del Method 10/10/22 11:01 36.8 C 106 H 18 106/76 97 Room Air Laboratory Results Short CBC 10/10/22 Range/Units 11:17 WBC 19.21 H (4.8-10.8) K/ul Hgb 10.1 L (14.0-18.0) g/dl Hct 31.6 L (42.0-52.0) % Plt Count 337 (130-400) K/uL BMP 10/10/22 11:17 Sodium 131 L Potassium 4.4 Chloride 93 L Carbon Dioxide 30 BUN 35 H Creatinine 0.99 Glucose 101 H Calcium 11.3 H Liver Function 10/10/22 10/10/22 Range/Units 11:17 14:41 Total Bilirubin 0.7 (0.2-1.0) mg/dl Direct Bilirubin 0.2 (0-0.2) mg/dl AST 66 H (13-39) U/L ALT 16 (7-52) U/L Alkaline Phosphatase 176 H (34-104) U/L Albumin 2.7 L (3.4-5.0) gm/dl Urine 10/10/22 Range/Units 16:05 Urine Color Dark Yellow Urine Appearance Clear (Clear) Urine pH 5.0 (4.5-7.5) Ur Specific [place] 1.024 (1.000-1.030) Urine Protein 1+ H (Negative) Urine Glucose (UA) Negative (Negative) Diagnostic Findings Chest X-Ray 10/10/22 11:06 XR chest 1V not portable HISTORY: 66 years-old Male illness acute illness COMPARISON: None TECHNIQUE: PA view the chest FINDINGS: Cardiomediastinal and hilar silhouettes are within normal limits. No pneumothorax, large pleural effusion or overt pulmonary edema. Bilateral pleural-based lesions measure up to 5.4 cm at the left lung base and approximately 6 m and the lateral right hemithorax. Degenerative changes of the shoulders and spine. IMPRESSION: Indeterminate bilateral pleural based lesions without comparison. Correlation with chest CT is needed. ACT 112: Negative or not required by law. The above report was generated using voice recognition software. It may contain grammatical, syntax or spelling errors. Electronically signed by: Raghu Mojica M.D. 10/10/2022 11:44 AM Abdomen/Pelvis CT 10/10/22 14:[address] WITH IV CONTRAST CT DOSE: HISTORY: back pain, weight-loss TECHNIQUE: Multiaxial CT images of the abdomen and pelvis were performed following the use of intravenous contrast. A dose lowering technique was utilized adhering to the principles of ALARA. COMPARISON STUDY: None. FINDINGS: Pathologic compression fractures at T10 and 11. Multiple scattered lytic lesions seen throughout the visualized osseous structures consistent with metastatic disease. There is a mild superior endplate pathologic compression fracture at L4. No associated retropulsion. Paravertebral and epidural tumor extension within the lower thoracic spine which is partially imaged on this study. Small right pleural effusion is noted. No pneumoperitoneum. No pneumatosis. Pathologic fractures of the medial pubic bones which are nondisplaced. Small lytic lesions within the left femoral neck raises the p ossibility of an impending fracture. Pathologic fracture within the large destructive lesion of the left iliac wing. Pathologic right anterior rib fractures are noted. Diffuse body wall edema is noted. An ill-defined 2.4 cm lesion within the central aspects of the liver on image 71. This favors metastatic disease. The spleen, adrenal glands, and pancreas are unremarkable. Normal gallbladder. There is a small cyst within the lower pole the left kidney. There is a 3.9 cm the metastatic deposited within the right posterior perinephric space/retroperitoneal which results in destruction of the distal right 12th rib. There is a large heterogeneous infiltrative mass within the right kidney resulting in severe right-sided hydronephrosis. This mass also encases the right renal pelvis and proximal right ureter. This mass measures approximately 10 cm and invades into the right perinephric/retroperitoneal soft tissues. Compression versus invasion of the right renal vein. The IVC is compressed. No tumor thrombus identified within the IVC. However, there is thrombus seen within the left common and internal iliac veins best seen on image 238. Metastatic retroperitoneal lymphadenopathy is noted. The bladder is unremarkable. The prostate gland is enlarged. There is a right-sided hydrocele which is partially visualized. No definite bowel wall thickening or obstruction. IMPRESSION: 1. There is is a large infiltrative right renal mass likely representing the primary malignancy. 2. Extensive metastatic disease as described above with destructive/lytic lesions and multiple pathologic fractures. 3. Thrombus of the left common and internal iliac veins. 4. Small lytic lesion within the left femoral neck favor an impending fracture. 5. Please refer to the the same day chest CT for further evaluation of the lung bases. ACT 112: Negative or not required by law. Electronically signed by: Mo Martinez M.D. 10/10/2022 4:25 PM Chest CTA 10/10/22 14:27 CT angio chest PE protocol CLINICAL HISTORY: back pain, sob, r/o PE TECHNIQUE: Multidetector row helical CT of the chest was performed with angiographic protocol. Coronal and sagittal reformations were obtained. Coronal and sagittal MIPS were obtained from the axial data set and were submitted for review. Automated dose lowering techniques and/or adjustment according to patient size were utilized for this exam. Comparison: None available at the time of this dictation. FINDINGS: Lungs and pleura: Atelectasis versus scarring is seen in the dependent portions of the lungs. There is a small right pleural effusion. There is a 4 mm nodule in the lingula (series 8 image 213), 4 mm nodule in the left upper lobe (image 242), and 4 mm nodule in the right upper lobe (image 269). Heart and pericardium: Heart size is normal. No pericardial effusion. Vessels: No evidence of pulmonary embolism. Mediastinum and tk: Unremarkable. Chest wall and lower neck: There is a large, lobular, rim calcified thyroid nodule measuring 64 mm in diameter with rightward displacement of the trachea. Abdomen: For findings below the diaphragm, please refer to CT of the abdomen dated the same. Bones: There is vertebral plana of T6 as well as compression deformities of T2, T7, T10, and T11. Multilevel degenerative changes are seen. There are numerous foci in the ribs most prominently including bony destruction with a soft tissue mass measuring 5 mm in the anterior left third rib and a 29 mm soft tissue mass with bony destruction at the lateral right seventh rib. Multiple foci of lytic disease are seen with pathologic fractures, for example the posterior lateral left third rib, the lateral left 10th rib, and the right lateral second and third rib. IMPRESSION: 1. No pulmonary embolus is seen. 2. Numerous lytic bony lesions are seen with associated soft tissue masses concerning for osseous metastases. Please see CT abdomen pelvis performed same day for findings below the diaphragm including right renal soft tissue mass. 3. Large rim calcified thyroid nodule is seen, if not previously evaluated, ultrasound can be performed. 4. Additional findings as above. ACT 112: Positive. There are findings on this exam that require communication between the performing entity and the patient following Patient Test Result Information Act ([place] Act 112) guidelines. Electronically signed by: Jaren Lucia M.D. 10/10/2022 4:[address] 10/10/22 14:[address] DOSE: HISTORY: neck/back pain, ?lung mass TECHNIQUE: Multiaxial CT images of the cervical spine were performed and reformatted in the sagittal and coronal plane without the use of contrast. A dose lowering technique was utilized adhering to the principles of ALARA. COMPARISON: None. FINDINGS: Scattered subcentimeter nodules noted within the lung apices. A peripherally calcified cystic left thyroid nodule measuring 6.2 cm. This results in right deviation and mild narrowing of the proximal trachea. Prevertebral soft tissues and the C1-C2 interval are intact. There is a 1.4 cm lytic lesion and pathologic fracture involving the left C7 transverse process. No additional fractures identified within the cervical spine. Lytic lesion within the T2 vertebral body with a pathologic burst fracture demonstrating up to 50% loss of height centrally. No associated retropulsion. Lytic lesion with near complete destruction of the posterior elements of T4. This is only partially imaged on this study. IMPRESSION: 1. Scattered lytic lesions within the lower cervical and thoracic spine consistent with metastatic disease. 2. Pathologic nondisplaced fracture within the left C7 transverse process. 3. Pathologic burst fracture at T2. No associated retropulsion. 4. A 6.2 cm peripherally calcified cystic left thyroid nodule. ACT 112: Negative or not required by law. Electronically signed by: Mo Martinez M.D. 10/10/2022 4:[address] 10/10/22 14:31 CT head/brain wo con CLINICAL HISTORY: 66 years-old Male with confusion, nausea, ?lung mass. Acute nausea with altered mental status TECHNIQUE: Multiple axial CT images of the head were obtained without contrast. A dose lowering technique was utilized adhering to the principles of ALARA. CT DOSE: 1564.40 mGy.cm COMPARISON: CT cervical spine of same day FINDINGS: No acute intracranial hemorrhage, midline shift, intracranial mass, acute territorial ischemia or abnormal extra-axial collection. Involutional changes with ventriculomegaly, possibly on an ex vacuo basis with asymmetric dilation of the left lateral ventricle. Mild white matter hypodensities may represent a component of chronic microvascular ischemic disease. The calvarium is intact. No destructive bone lesions identified. The paranasal sinuses, mastoid air cells, and middle ear cavities are clear. IMPRESSION: No acute intracranial abnormality. ACT 112: Negative or not required by law. The above report was generated using voice recognition software. It may contain grammatical, syntax or spelling errors. Electronically signed by: Raghu Mojica M.D. 10/10/2022 4:05 PM Supervising Physician Co-Signing Physician Notes Patient is a 66-year-old male with history of chronic lower back pain, intermittent hematuria and no other known significant medical history presents with history of worsening lower back pain, generalized weakness associated with ambulatory dysfunction and intermittent hematuria. Patient is a poor historian. Patient also admits to have significant weight loss of about 100 pounds over past few months. He states that despite eating well he continued to lose weight. He has strong smoking history, family history of cancer. He denies any recent falls, trauma. He denies any hip pain, neck pain, chest pain, abdominal pain, fever, dyspnea, dysuria. Please review HPI for complete details of presentation. I personally reviewed blood work, imaging studies and EKG. Physical Exam: Vitals signs as noted above General Appearance: Thin, frail, ill-appearing, no apparent distress Head: normocephalic, Atraumatic Eyes: normal inspection, EOMI Neck: supple, Trachea midline Respiratory/Chest: Normal breath sounds, CTA, No accessory muscle use Cardiovascular: S1, S2, No murmur Abdomen/GI:Soft, Non tender, Bowel sounds present Back:Tender to palpate Extremities/Musculoskeletal:normal inspection, no edema Neurologic/Psych:AAOX3, grossly no focal neurological deficits Skin: normal color, warm, +Tattoos Metastatic cancer Likely RCC with mets Hypercalcemia secondary to above Bilateral pleural lesions Right renal mass Pathological fracture of right femoral neck, T 2 burst fracture, C7 fracture Left thyroid nodule Thrombosis of left common and internal iliac veins. Possible sepsis Hyponatremia Hypochloremia Anemia of chronic disease Ambulatory dysfunction Lactic acidosis We will start on empiric antibiotics, IV fluids given possible sepsis Pain control Orthopedics, oncology consulted Started on IV heparin given thrombosis of the left common and internal iliac veins Monitor sodium, calcium levels We will give a dose of Zometa Fall precautions Monitor for any bleeding issues Monitor for urinary retention Work-up for hypercalcemia ordered Poor prognosis Consider vascular surgery evaluation if needed I personally reviewed the record. Patient is interviewed and examined at bed side. Patient's care is coordinated with Cata Betts PA-C. Please refer to the documentation above for details of patient's presentation and for discussion of other issues.
[2022-10-10] MEDS ORDERED: HEPARIN SOD (PORCINE) 1000 UNIT/ML IV SCH (17:15)
[2022-10-10] MEDS: HEPARIN SODIUM/DEXTROSE 25,000 UNITS/500 ML BAG IV SCH (18:15)
[2022-10-10] MEDS ORDERED: ONDANSETRON INJ 2 MG/ML 2 ML VIAL IV PRN (20:30)
[2022-10-10] MEDS ORDERED: ACETAMINOPHEN 325 MG TAB PO PRN (20:30)
[2022-10-10] MEDS ORDERED: ALUMINUM/MAGNESIUM SUSP 30 ML UDC PO PRN (20:30)
[2022-10-10] MEDS ORDERED: POLYETHYLENE (MIRALAX) 17 GM PACK PO PRN (20:30)
[2022-10-10] MEDS ORDERED: MAGNESIUM HYDROXIDE SUSP 30 ML UDC PO PRN (20:30)
[2022-10-10] MEDS ORDERED: ZOLEDRONIC ACID 4 MG in 0.9 % SODIUM CHLORIDE 100 ML IV ONE (20:45)
[2022-10-10] MEDS: SODIUM CHLORIDE 0.9% 1000ML 1,000 ML IV SCH (21:34)
[2022-10-10] MEDS: PIPERACILLIN/TAZOBACTAM 3.375 GM in DEXTROSE 5% 100 ML IV SCH (21:34)
--- NOTE | 2022-10-10 23:04 | Urology Consultation ---
Date of Consultation October 10, 2022 Assessment & Plan (1) Metastatic cancer: It appears as though the patient likely has a metastatic renal cell carcinoma. The medical service has proceeded as follows: Hematology/oncology and palliative care service have been consulted to help assist with patient's new cancer diagnosis as well as delineating his prognosis and goals of treatment. Pain control measures have been implemented Due to the noted pathologic fractures of patient's spine Ortho/spine has been consulted and recommendations are pending She has been started on IV heparin for thrombus of the left common and internal iliac veins Patient is noted to be hypercalcemic likely from metastatic cancer which is being managed by the medical service The patient is noted to have leukocytosis without clear source of infection. It does not appear that he has a urine infection. He has been placed on empiric Zosyn and appropriate cultures have been sent The patient was noted to have severe hydronephrosis likely secondary to his underlying right-sided renal lesion. He was also noted to have urinary retention and Urias catheter has been placed. Continue to monitor the patient's urine output. We will discuss with urology attending to see if there is any role for cystoscopy with stent placement due to the patient's hydronephrosis. We will also await hematology/oncology recommendations to see if tissue diagnosis is needed and the best way to obtain this diagnosis. Additional recommendations will be forthcoming based on recommendations by hematology/oncology as well as discussion with urology attending Supervising Physician Co-Signing Physician Notes Discussed patient with AVINASH. Agree with plan. Reviewed chart and imaging. Suspected right kidney cancer with numerous metastasis. Patient does have right-sided hydronephrosis due the mass however creatinine is not elevated at the moment and no concern for UTI so I do not think placing a stent is necessary at this time. No acute urologic intervention necessary. Patient will need tissue sample for diagnosis, which may have to be done at an outside facility. He will then need medical oncology for systemic treatment. I do not think he would benefit from a cytoreductive nephrectomy given his metastastic burden and likely poor risk based on his initial labs. History of Present Illness Reason for Consultation: Metastatic renal cancer Attending Physician: Georgina Babin, DO History of Present Illness This is a 66-year-old male who is currently incarcerated who presented to [facility] [address] emergency department secondary to worsening back pain. Patient says that he does have chronic back pain but it seems to be worse than usual. He notes that he has had increasing generalized weakness and difficulty ambulating for approximately 1 week. The patient denies any fevers, shakes, or chills. He denies any nausea or vomiting. He says that he does have a substantial unintentional weight loss over the past year and says that he has lost approximately 100 pounds. He denies any dysuria but does report having some intermittent hematuria. With his generalized weakness he has not had any falls or head injuries. He denies any visual changes. He does have a history of smoking 3 packs of cigarettes per day. He does not have any prior history of cancer. Since arrival to the hospital the patient has had labs and imaging which I independent reviewed. He did have a CT scan of the head that showed no acute intracranial process. A cervical spine CT scan showed scattered lytic lesions through the lower cervical spine as well as part of the thoracic spine that was felt to be consistent with metastatic disease. There is a pathologic and nondisplaced fracture at the C7 transverse process. There is a pathologic burst fracture at the T2 with no retropulsion. A CT scan of the chest showed no evidence of pulmonary emboli. There were numerous bony lytic lesions and associated soft tissue masses concerning for osseous metastases. A CT scan of the abdomen and pelvis showed the patient had a large right renal mass that was felt to represent a primary malignancy. This mass appeared to encase the right renal pelvis and proximal right ureter and had resultant severe right-sided hydronephrosis. There is extensive metastatic disease with numerous destructive and lytic lesions along with pathologic fractures. Pathologic fractures of were noted at the T10 and T11 levels. A compression fracture was noted at the L4 level. There is no associated retropulsion. Pathologic fractures were also noted at the medial pubic bones which were nondisplaced. Small lytic lesions were noted at the left femoral neck with no definite fracture noted. Pathologic fractures were noted at the left iliac wing and pathologic right anterior rib fractures were noted. A chest x-ray showed bilateral pleural effusions. Labs include a CBC her white blood cell count was elevated at 19.2. Hemoglobin and hematocrit were 10.1 and 31.6. Platelet count was normal. Chemistry profile showed sodium was 131 with a normal potassium. BUN was elevated at 35 with a normal creatinine. Lactic acid at time of admission was elevated at 3.0. This has been followed serially and has decreased to 2.5. The patient was noted to have a normal bilirubin and ALT but the AST was slightly elevated at 66 and alkaline phosphatase was elevated at 176. Calcium level was elevated at 11.3. A urinalysis did show 1+ protein but was otherwise not indicative of infection. A COVID test was negative. At the time of my interview the patient was resting comfortably in bed and he was in no distress. Allergies Allergy/AdvReac Type Severity Reaction Status Date / Time No Known Allergies Allergy Verified 10/10/22 15:02 Home Medications Medication Instructions Recorded Confirmed Type No Known Home Medications 10/10/22 10/10/22 History Patient History Medical History Chronic back pain History of alcohol use History of tobacco use Surgical History No significant past surgical history Family History Other Cancer Social History Smoking Status: Former smoker Tobacco Type: Cigarettes packs per day: 3; Second Hand Exposure: Yes; Do You Dip or Chew Tobacco: No; Tobacco Cessation Education Requested by Patient: No Hx Alcohol Use: No (former) Hx Substance Use: No Preferred Language: Spanish Communication Ability: Effective Filament Shaper Required: No Beliefs That Will Affect Care: None Current Living Situation: Other Current Living Situation Comment: [facility] Other Information That Helps Us Care for You: No Feels Safe at Home: Declines to Answer Assistive Devices: None Review of Systems Constitutional: + weakness and + weight loss; no fever and no chills Eyes: no eye pain Ear, Nose, Mouth, Throat: no ear pain and no sore throat Respiratory: no dyspnea Cardiovascular: no chest pain Gastrointestinal: no abdominal pain, no nausea and no vomiting Genitourinary: + as per Subjective / HPI Musculoskeletal: + back pain Integumentary: no rash Neurologic: + generalized weakness; no localized weakness Physical Exam Constitutional: + thin and + cachectic; no acute distress Eyes: no conjunctival abnormality ENMT: Ears: no hearing impairment and no external ear abnormality Mouth: no oropharynx abnormality Neck: trachea midline Respiratory: normal respiratory effort; no respiratory distress and no labored breathing Cardiovascular: Rate/Rhythm: regular rate and regular rhythm Gastrointestinal (Abdomen): Abdomen is soft and nondistended. There is no pain with palpation. No masses were palpable. Musculoskeletal: No calf tenderness. I did palpate the patient's back and he did not exhibit any pain at the time of my exam. Skin: no rashes Neurologic: Patient is able to follow simple commands and move all 4 extremities without noted focal deficits. Psychiatric: Orientation: alert and oriented x 3 Affect: + flat affect Genitourinary: Urias catheter is in place draining clear yellow urine. There is no CVA tenderness to percussion bilaterally at the time of my exam Results & Data Vital Signs (Past 12 Hours) Vital Signs Temp Pulse Pulse Resp BP BP Pulse Ox 10/10/22 22:30 36.4 C L 88 18 100/69 98 10/10/22 19:40 36.4 C L 78 18 100/68 97 10/10/22 20:30 10/10/22 19:37 90 15 99/68 L 97 10/10/22 18:15 89 10/10/22 11:01 36.8 C 106 H 18 106/76 97 O2 Del Method 10/10/22 22:30 Room Air 10/10/22 19:40 Room Air 10/10/22 20:30 Room Air 10/10/22 19:37 Room Air 10/10/22 18:15 10/10/22 11:01 Room Air PG Care Time/CCT Total # of Minutes Spent Total Time Spent with Patient: Total time spent is greater than 50% in coordination of care (as documented) at patient's floor/unit and/or counseling patient: Coding Level of Care Code 76664 IN/OBS CONSULT LVL 5,80M Diagnoses Metastatic cancer C79.9
[2022-10-11 00:48] LABS: Partial Thromboplastin Ratio 1.3; Partial Thromboplastin Time 37.1 Seconds (21.0-31.0)
[2022-10-11] MEDS ORDERED: HEPARIN SOD (PORCINE) 1000 UNIT/ML IV ONE (03:00)
[2022-10-11] MEDS: PIPERACILLIN/TAZOBACTAM 3.375 GM in DEXTROSE 5% 100 ML IV SCH ×3 (05:34→23:25)
--- NOTE | 2022-10-11 06:09 | Electrocardiogram Report ---
Test Reason : Blood Pressure : / mmHG Vent. Rate : 114 BPM Atrial Rate : 114 BPM P-R Int : 144 ms QRS Dur : 076 ms QT Int : 336 ms P-R-T Axes : 088 063 070 degrees QTc Int : 463 ms Poor data quality, interpretation may be adversely affected Sinus tachycardia Cannot rule out Anterior infarct , age undetermined Abnormal ECG No previous ECGs available Confirmed by Abdulaziz Dickey ([id number]) on 10/11/2022 6:09:20 AM Referred By: Confirmed By:Abdulaziz Dickey
[2022-10-11 07:44] LABS: Basophils # (auto) 0.02 K/uL (0-0.2); Basophils % (auto) 0.2 %; Eosinophils # (auto) 0.01 K/uL (0-0.50); Eosinophils % (auto) 0.1 %; Hematocrit (blood only) 26.8 % (42.0-52.0); Hemoglobin 8.5 g/dl (14.0-18.0); Immature Granulocytes # (auto) 0.41 K/uL (0.01-0.20); Immature Granulocytes % (auto) 3.2 %; Lymphocytes # (auto) 0.79 K/uL (1.2-3.4); Lymphocytes % (auto) 6.1 %; Mean Corpuscular Hemoglobin 27.5 pg (25.0-34.0); Mean Corpuscular Hgb Conc 31.7 g/dL (32.0-36.0); Mean Corpuscular Volume 86.7 fL (80.0-100.0); Monocytes # (auto) 0.91 K/uL (0.11-0.59); Neutrophils # (auto) 10.81 K/uL (1.40-6.50); Neutrophils % (auto) 83.4 %; Platelet Count 286 K/uL (130-400); RDW Coefficient of Variation 16.7 % (11.5-14.5); RDW Standard Deviation 50.4 fL (36.4-46.3); Red Blood Count 3.09 M/uL (4.70-6.10); White Blood Count 12.95 K/ul (4.8-10.8)
[2022-10-11 07:55] LABS: Calcium 9.7 mg/dl (8.6-10.3); Creatinine Clr Calc Pharmacy 62.2 ml/min; Est GFR (African American) 91.8 ml/min; Est GFR (Non-African American) 79.2 ml/min; Magnesium 1.9 mg/dl (1.7-2.4); Potassium 4.3 mmol/L (3.5-5.1)
[2022-10-11 08:05] LABS: Partial Thromboplastin Ratio 1.6; Partial Thromboplastin Time 43.9 Seconds (21.0-31.0)
--- NOTE | 2022-10-11 08:28 | Hospitalist Progress Note ---
Date of Service October 11, 2022 Assessment & Plan (1) Metastatic cancer: (2) Weakness: (3) Acute exacerbation of chronic low back pain: (4) Ambulatory dysfunction: (5) Pathologic rib fracture: (6) Burst fracture of thoracic vertebra: (7) Hypercalcemia: (8) Urinary retention: (9) Leukocytosis: (10) History of alcohol use: (11) History of tobacco use: Plan This is a 66-year-old male from [facility] with PMH of chronic back pain who presents for evaluation of worsening acute on chronic back pain, weakness, ambulatory dysfunction over the past week and was found to have extensive metastatic cancer with likely renal mass as primary malignancy. Worsening weakness Acute on chronic back pain Extensive metastatic cancer with likely renal mass as primary malignancy In setting of worsening back pain, ambulatory dysfunction, weakness Extensive metastatic disease with destructive/lytic lesions and multiple pathologic fractures, soft tissue involvement CT abd/pelvis with * a large infiltrative right renal mass likely representing the primary malignancy * extensive metastatic disease as described above with destructive/lytic lesions and multiple pathologic fractures * thrombus of the left common and internal iliac veins * small lytic lesion within the left femoral neck favor an impending fracture Chest CTA with numerous lytic bony lesions are seen with associated soft tissue masses concerning for osseous metastases. Large rim calcified thyroid nodule is seen, if not previously evaluated, ultrasound can be performed Consulted heme onc and palliative services for extensive new cancer diagnosis, prognosis and goals/treatment Pain control for multiple pathologic fractures Bed bound status until able to be evaluated by ortho spine Continue IV heparin for thrombus of L common and internal iliac veins. May need vascular input during admission. Monitor closely for any acute bleeding. Will discuss further w/ hematology. Considered tumor lysis syndrome given extensive disease but no lyte abnormalities c/w syndrome - continue to monitor T2 pathologic burst fracture Cervical spine CT with * Scattered lytic lesions within the lower cervical and thoracic spine consistent with metastatic disease. * Pathologic nondisplaced fracture within the left C7 transverse process. * Pathologic burst fracture at T2. No associated retropulsion. * A 6.2 cm peripherally calcified cystic left thyroid nodule. ED provider discussed case with Dr. Herron given T2 burst fracture - feels patient is an unlikely surgical candidate given extent of disease. No need for C-collar, bed rest, sit up as comfortable, will evaluate next day Hypercalcemia In setting of metastatic cancer with multiple lytic lesions, also dehydration likely a component Serum calcium 11.3 on admission ionized calcium this a.m. 1.43 Given 1 time dose of zolendronic acid Hypercalcemia work-up in process vit D level low at 9.3, PTH 12.9 nl will further discuss w/ nephrology Urinary retention Urinary retention noted on imaging, hydronephrosis in setting of large right renal mass Urias catheter placed, monitor output Urology consulted - Suspected right kidney cancer with numerous metastases. Patient does have right-sided hydronephrosis due the mass however creatinine is not elevated at the moment and no concern for UTI so I do not think placing a stent is necessary at this time. No acute urologic intervention necessary. Patient will need tissue sample for diagnosis, which may have to be done at an outside facility. He will then need medical oncology for systemic treatment. I do not think he would benefit from a cytoreductive nephrectomy given his metastatic burden and likely poor risk based on his initial labs. Leukocytosis Meeting SIRs criteria with WBC 19k, HR 105, lactate 3, procal of 1.38 but no clear infectious source Could be reactive given extensive cancer burden, dehydration Covering with empiric Zosyn, follow blood culture WBC down to 12.9K History of significant tobacco use, alcohol use Endorses smoking 3 packs/day prior to time and JANESSA Delgadillo, unable to characterize length of time smoking. Also endorsing heavy alcohol use in the past DVT Ppx: IV heparin Code status: Full code PCP: JANESSA Delgadillo Dispo: Admitted to PCU Admission and Anticipated Discharge Date Admission Date: October 10, 2022 Subjective Pt seen in follow up of weakness, back pain, poss. sepsis w/ leukocytosis, found to have renal mass and extensive metastases, hydronephrosis, hypercalcemia Currently laying in bed in NAD, reports feeling better than yesterday Discussed findings and labs from yesterday - pt seemed to be surprised about some of that Currently has Urias and draining yellow urine, reports no abdominal pain Seen by urology this AM Other specialists also consulted - awaiting their recommendations Pt is awake , alert able to answer simple questions appropriately No chest pain, no shortness of breath Review of Systems Review of Systems: All systems reviewed & are unremarkable except as noted in Subjective Physical Exam Physical Exam: General Appearance: Thin/cachetic, frail, chronically ill-appearing, no apparent distress Head: normocephalic, Atraumatic Eyes: normal inspection, EOMI Neck: supple Respiratory/Chest: Normal breath sounds, CTA, No accessory muscle use Cardiovascular: S1, S2, No murmur Abdomen/GI: Soft, Non tender, Bowel sounds present : Urias cath draining yellow urine Back: Tender to palpate Extremities/Musculoskeletal: normal inspection, no edema Neurologic/Psych: AAOX3, speech fluent, no facial asymmetry, moves extremities Skin: normal color, warm, +Tattoos Results & Data Results & Data Vital Signs (Past 12 Hours) Vital Signs Temp Pulse Pulse Resp BP Pulse Ox O2 Del Method 10/10/22 23:00 90 10/11/22 03:00 36.6 C 91 H 18 96/62 L 97 Room Air 10/10/22 22:30 36.4 C L 88 18 100/69 98 Room Air 10/10/22 20:30 Room Air Laboratory Results 10/11/22 10/11/22 10/11/22 Range/Units 07:15 07:15 07:15 WBC 12.95 H (4.8-10.8) K/ul RBC 3.09 L (4.70-6.10) M/uL Hgb 8.5 L (14.0-18.0) g/dl Hct 26.8 L (42.0-52.0) % MCV 86.7 (80.0-100.0) fL MCH 27.5 (25.0-34.0) pg MCHC 31.7 L (32.0-36.0) g/dL RDW Std Deviation 50.4 H (36.4-46.3) fL RDW Coeff of Ana 16.7 H (11.5-14.5) % Plt Count 286 (130-400) K/uL MPV 9.0 L (9.4-12.4) fL Immature Gran % (Auto) 3.2 % Neut % (Auto) 83.4 % Lymph % (Auto) 6.1 % [place] % (Auto) 7.0 % Eos % (Auto) 0.1 % Baso % (Auto) 0.2 % Neut # (Auto) 10.81 H (1.40-6.50) K/uL Lymph # (Auto) 0.79 L (1.2-3.4) K/uL [place] # (Auto) 0.91 H (0.11-0.59) K/uL Eos # (Auto) 0.01 (0-0.50) K/uL Baso # (Auto) 0.02 (0-0.2) K/uL Immature Gran # (Auto) 0.41 H (0.01-0.20) K/uL PT (9.0-12.0) Seconds INR (0.9-1.1) APTT 43.9 H (21.0-31.0) Seconds PTT Ratio 1.6 Sodium (136-145) mmol/L Potassium (3.5-5.1) mmol/L Chloride (98-107) mmol/L Carbon Dioxide (21-32) mmol/L Anion Gap (3-11) BUN (6-23) mg/dl Creatinine (0.6-1.4) mg/dl Est Cr Clr Drug Dosing Est GFR ( Amer) ml/min Est GFR (Non-Af Amer) ml/min BUN/Creatinine Ratio (10-20) Glucose (70-99(Fasting)) mg/dl Lactate (0.4-2.0) mmol/L Calcium (8.6-10.3) mg/dl Ionized Calcium 1.43 H (1.12-1.32) mmol/L Phosphorus (2.5-4.9) mg/dl Magnesium (1.7-2.4) mg/dl Total Bilirubin (0.2-1.0) mg/dl Direct Bilirubin (0-0.2) mg/dl AST (13-39) U/L ALT (7-52) U/L Alkaline Phosphatase (34-104) U/L Total Protein (6.0-8.3) gm/dl Total Protein (PEP) Albumin (3.4-5.0) gm/dl Albumin (PEP) Globulin (2.5-4.0) gm/dl Albumin/Globulin Ratio (0.9-2) Efuyk-2-Fptzksvcw Oejgn-6-Vshsxrbpk Efdd-0-Fxqygxjn Ebao-0-Febzdtzu Gamma Globulins Monoclonal Peak 3 Ser Monoclonl Protein Ser Monoclonal Prot 2 PEP Interpretation Lipase (11-82) U/L 25-OH Vitamin D Total (30-100) ng/ml Vit D 1,25-Dihyd Total 1,25 Dihydroxy Vit D2 1,25 Dihydroxy Vit D3 Procalcitonin (0-0.5) ng/ml TSH (0.300-4.500) uIu/ml PTH Intact (12.0-88.0) pg/ml PTH Related Protein Urine Color Urine Appearance (Clear) Urine pH (4.5-7.5) Ur Specific [place] (1.000-1.030) Urine Protein (Negative) Urine Glucose (UA) (Negative) Urine Ketones (Negative) Urine Blood (Negative) Urine Nitrite (Negative) Urine Bilirubin (Negative) Urine Urobilinogen (Negative) Ur Leukocyte Esterase (Negative) Urine WBC (Auto) (0-5) /hpf Urine RBC (Auto) (0-4) /hpf U Hyaline Cast (Auto) (0-5) /lpf U Epithel Cells (Auto) (0-5) /lpf Urine Bacteria (Auto) (Negative) Urine Sperm (None Prsent) Nasal Screen MRSA (PCR) (Negative) SARS-CoV-2, RNA, NAAT (NEGATIVE) 10/11/22 10/11/22 10/10/22 Range/Units 07:15 00:08 Unknown WBC (4.8-10.8) K/ul RBC (4.70-6.10) M/uL Hgb (14.0-18.0) g/dl Hct (42.0-52.0) % MCV (80.0-100.0) fL MCH (25.0-34.0) pg MCHC (32.0-36.0) g/dL RDW Std Deviation (36.4-46.3) fL RDW Coeff of Ana (11.5-14.5) % Plt Count (130-400) K/uL MPV (9.4-12.4) fL Immature Gran % (Auto) % Neut % (Auto) % Lymph % (Auto) % [place] % (Auto) % Eos % (Auto) % Baso % (Auto) % Neut # (Auto) (1.40-6.50) K/uL Lymph # (Auto) (1.2-3.4) K/uL [place] # (Auto) (0.11-0.59) K/uL Eos # (Auto) (0-0.50) K/uL Baso # (Auto) (0-0.2) K/uL Immature Gran # (Auto) (0.01-0.20) K/uL PT (9.0-12.0) Seconds INR (0.9-1.1) APTT 37.1 H (21.0-31.0) Seconds PTT Ratio 1.3 Sodium 131 L (136-145) mmol/L Potassium 4.3 (3.5-5.1) mmol/L Chloride 97 L (98-107) mmol/L Carbon Dioxide 28 (21-32) mmol/L Anion Gap 6 (3-11) BUN 33 H (6-23) mg/dl Creatinine 1.00 (0.6-1.4) mg/dl Est Cr Clr Drug Dosing 62.2 Est GFR ( Amer) 91.8 ml/min Est GFR (Non-Af Amer) 79.2 ml/min BUN/Creatinine Ratio 33.0 H (10-20) Glucose 96 (70-99(Fasting)) mg/dl Lactate (0.4-2.0) mmol/L Calcium 9.7 (8.6-10.3) mg/dl Ionized Calcium (1.12-1.32) mmol/L Phosphorus (2.5-4.9) mg/dl Magnesium 1.9 (1.7-2.4) mg/dl Total Bilirubin (0.2-1.0) mg/dl Direct Bilirubin (0-0.2) mg/dl AST (13-39) U/L ALT (7-52) U/L Alkaline Phosphatase (34-104) U/L Total Protein (6.0-8.3) gm/dl Total Protein (PEP) Albumin (3.4-5.0) gm/dl Albumin (PEP) Globulin (2.5-4.0) gm/dl Albumin/Globulin Ratio (0.9-2) Fjqhb-2-Agqjbkyvg Lxjrw-7-Rnjgzpjad Cofd-0-Obetcvps Opqw-9-Sfhnaepw Gamma Globulins Monoclonal Peak 3 Ser Monoclonl Protein Ser Monoclonal Prot 2 PEP Interpretation Lipase (11-82) U/L 25-OH Vitamin D Total (30-100) ng/ml Vit D 1,25-Dihyd Total 1,25 Dihydroxy Vit D2 1,25 Dihydroxy Vit D3 Procalcitonin (0-0.5) ng/ml TSH (0.300-4.500) uIu/ml PTH Intact (12.0-88.0) pg/ml PTH Related Protein Urine Color Urine Appearance (Clear) Urine pH (4.5-7.5) Ur Specific [place] (1.000-1.030) Urine Protein (Negative) Urine Glucose (UA) (Negative) Urine Ketones (Negative) Urine Blood (Negative) Urine Nitrite (Negative) Urine Bilirubin (Negative) Urine Urobilinogen (Negative) Ur Leukocyte Esterase (Negative) Urine WBC (Auto) (0-5) /hpf Urine RBC (Auto) (0-4) /hpf U Hyaline Cast (Auto) (0-5) /lpf U Epithel Cells (Auto) (0-5) /lpf Urine Bacteria (Auto) (Negative) Urine Sperm (None Prsent) Nasal Screen MRSA (PCR) Negative (Negative) SARS-CoV-2, RNA, NAAT (NEGATIVE) 10/10/22 10/10/22 10/10/22 Range/Units 23:32 20:54 20:54 WBC (4.8-10.8) K/ul RBC (4.70-6.10) M/uL Hgb (14.0-18.0) g/dl Hct (42.0-52.0) % MCV (80.0-100.0) fL MCH (25.0-34.0) pg MCHC (32.0-36.0) g/dL RDW Std Deviation (36.4-46.3) fL RDW Coeff of Ana (11.5-14.5) % Plt Count (130-400) K/uL MPV (9.4-12.4) fL Immature Gran % (Auto) % Neut % (Auto) % Lymph % (Auto) % [place] % (Auto) % Eos % (Auto) % Baso % (Auto) % Neut # (Auto) (1.40-6.50) K/uL Lymph # (Auto) (1.2-3.4) K/uL [place] # (Auto) (0.11-0.59) K/uL Eos # (Auto) (0-0.50) K/uL Baso # (Auto) (0-0.2) K/uL Immature Gran # (Auto) (0.01-0.20) K/uL PT (9.0-12.0) Seconds INR (0.9-1.1) APTT (21.0-31.0) Seconds PTT Ratio Sodium (136-145) mmol/L Potassium (3.5-5.1) mmol/L Chloride (98-107) mmol/L Carbon Dioxide (21-32) mmol/L Anion Gap (3-11) BUN (6-23) mg/dl Creatinine (0.6-1.4) mg/dl Est Cr Clr Drug Dosing Est GFR ( Amer) ml/min Est GFR (Non-Af Amer) ml/min BUN/Creatinine Ratio (10-20) Glucose (70-99(Fasting)) mg/dl Lactate 2.7 H* 2.5 H* (0.4-2.0) mmol/L Calcium (8.6-10.3) mg/dl Ionized Calcium (1.12-1.32) mmol/L Phosphorus (2.5-4.9) mg/dl Magnesium (1.7-2.4) mg/dl Total Bilirubin (0.2-1.0) mg/dl Direct Bilirubin (0-0.2) mg/dl AST (13-39) U/L ALT (7-52) U/L Alkaline Phosphatase (34-104) U/L Total Protein (6.0-8.3) gm/dl Total Protein (PEP) Albumin (3.4-5.0) gm/dl Albumin (PEP) Globulin (2.5-4.0) gm/dl Albumin/Globulin Ratio (0.9-2) Maysu-5-Avnrngvfs Efpql-3-Fhwoubcno Hdbd-4-Otuhedsc Pkml-4-Fiszkgyf Gamma Globulins Monoclonal Peak 3 Ser Monoclonl Protein Ser Monoclonal Prot 2 PEP Interpretation Lipase (11-82) U/L 25-OH Vitamin D Total (30-100) ng/ml Vit D 1,25-Dihyd Total 1,25 Dihydroxy Vit D2 1,25 Dihydroxy Vit D3 Procalcitonin (0-0.5) ng/ml TSH (0.300-4.500) uIu/ml PTH Intact 12.9 (12.0-88.0) pg/ml PTH Related Protein Urine Color Urine Appearance (Clear) Urine pH (4.5-7.5) Ur Specific [place] (1.000-1.030) Urine Protein (Negative) Urine Glucose (UA) (Negative) Urine Ketones (Negative) Urine Blood (Negative) Urine Nitrite (Negative) Urine Bilirubin (Negative) Urine Urobilinogen (Negative) Ur Leukocyte Esterase (Negative) Urine WBC (Auto) (0-5) /hpf Urine RBC (Auto) (0-4) /hpf U Hyaline Cast (Auto) (0-5) /lpf U Epithel Cells (Auto) (0-5) /lpf Urine Bacteria (Auto) (Negative) Urine Sperm (None Prsent) Nasal Screen MRSA (PCR) (Negative) SARS-CoV-2, RNA, NAAT (NEGATIVE) 10/10/22 10/10/22 10/10/22 Range/Units 20:53 20:53 17:22 WBC (4.8-10.8) K/ul RBC (4.70-6.10) M/uL Hgb (14.0-18.0) g/dl Hct (42.0-52.0) % MCV (80.0-100.0) fL MCH (25.0-34.0) pg MCHC (32.0-36.0) g/dL RDW Std Deviation (36.4-46.3) fL RDW Coeff of Ana (11.5-14.5) % Plt Count (130-400) K/uL MPV (9.4-12.4) fL Immature Gran % (Auto) % Neut % (Auto) % Lymph % (Auto) % [place] % (Auto) % Eos % (Auto) % Baso % (Auto) % Neut # (Auto) (1.40-6.50) K/uL Lymph # (Auto) (1.2-3.4) K/uL [place] # (Auto) (0.11-0.59) K/uL Eos # (Auto) (0-0.50) K/uL Baso # (Auto) (0-0.2) K/uL Immature Gran # (Auto) (0.01-0.20) K/uL PT (9.0-12.0) Seconds INR (0.9-1.1) APTT (21.0-31.0) Seconds PTT Ratio Sodium (136-145) mmol/L Potassium (3.5-5.1) mmol/L Chloride (98-107) mmol/L Carbon Dioxide (21-32) mmol/L Anion Gap (3-11) BUN (6-23) mg/dl Creatinine (0.6-1.4) mg/dl Est Cr Clr Drug Dosing Est GFR ( Amer) ml/min Est GFR (Non-Af Amer) ml/min BUN/Creatinine Ratio (10-20) Glucose (70-99(Fasting)) mg/dl Lactate 2.7 H* (0.4-2.0) mmol/L Calcium (8.6-10.3) mg/dl Ionized Calcium (1.12-1.32) mmol/L Phosphorus (2.5-4.9) mg/dl Magnesium (1.7-2.4) mg/dl Total Bilirubin (0.2-1.0) mg/dl Direct Bilirubin (0-0.2) mg/dl AST (13-39) U/L ALT (7-52) U/L Alkaline Phosphatase (34-104) U/L Total Protein (6.0-8.3) gm/dl Total Protein (PEP) Pending Albumin (3.4-5.0) gm/dl Albumin (PEP) Pending Globulin (2.5-4.0) gm/dl Albumin/Globulin Ratio (0.9-2) Pmsni-3-Omuihrrvn Pending Gfznt-4-Tmkyihlhu Pending Vmfp-5-Pelpsouw Pending Qxlz-2-Xbghlwxm Pending Gamma Globulins Pending Monoclonal Peak 3 Pending Ser Monoclonl Protein Pending Ser Monoclonal Prot 2 Pending PEP Interpretation Pending Lipase (11-82) U/L 25-OH Vitamin D Total 9.3 L (30-100) ng/ml Vit D 1,25-Dihyd Total Pending 1,25 Dihydroxy Vit D2 Pending 1,25 Dihydroxy Vit D3 Pending Procalcitonin (0-0.5) ng/ml TSH (0.300-4.500) uIu/ml PTH Intact (12.0-88.0) pg/ml PTH Related Protein Pending Urine Color Urine Appearance (Clear) Urine pH (4.5-7.5) Ur Specific [place] (1.000-1.030) Urine Protein (Negative) Urine Glucose (UA) (Negative) Urine Ketones (Negative) Urine Blood (Negative) Urine Nitrite (Negative) Urine Bilirubin (Negative) Urine Urobilinogen (Negative) Ur Leukocyte Esterase (Negative) Urine WBC (Auto) (0-5) /hpf Urine RBC (Auto) (0-4) /hpf U Hyaline Cast (Auto) (0-5) /lpf U Epithel Cells (Auto) (0-5) /lpf Urine Bacteria (Auto) (Negative) Urine Sperm (None Prsent) Nasal Screen MRSA (PCR) (Negative) SARS-CoV-2, RNA, NAAT (NEGATIVE) 10/10/22 10/10/22 10/10/22 Range/Units 16:05 14:47 14:41 WBC (4.8-10.8) K/ul RBC (4.70-6.10) M/uL Hgb (14.0-18.0) g/dl Hct (42.0-52.0) % MCV (80.0-100.0) fL MCH (25.0-34.0) pg MCHC (32.0-36.0) g/dL RDW Std Deviation (36.4-46.3) fL RDW Coeff of Ana (11.5-14.5) % Plt Count (130-400) K/uL MPV (9.4-12.4) fL Immature Gran % (Auto) % Neut % (Auto) % Lymph % (Auto) % [place] % (Auto) % Eos % (Auto) % Baso % (Auto) % Neut # (Auto) (1.40-6.50) K/uL Lymph # (Auto) (1.2-3.4) K/uL [place] # (Auto) (0.11-0.59) K/uL Eos # (Auto) (0-0.50) K/uL Baso # (Auto) (0-0.2) K/uL Immature Gran # (Auto) (0.01-0.20) K/uL PT (9.0-12.0) Seconds INR (0.9-1.1) APTT (21.0-31.0) Seconds PTT Ratio Sodium (136-145) mmol/L Potassium (3.5-5.1) mmol/L Chloride (98-107) mmol/L Carbon Dioxide (21-32) mmol/L Anion Gap (3-11) BUN (6-23) mg/dl Creatinine (0.6-1.4) mg/dl Est Cr Clr Drug Dosing Est GFR ( Amer) ml/min Est GFR (Non-Af Amer) ml/min BUN/Creatinine Ratio (10-20) Glucose (70-99(Fasting)) mg/dl Lactate 3.0 H* (0.4-2.0) mmol/L Calcium (8.6-10.3) mg/dl Ionized Calcium (1.12-1.32) mmol/L Phosphorus (2.5-4.9) mg/dl Magnesium (1.7-2.4) mg/dl Total Bilirubin (0.2-1.0) mg/dl Direct Bilirubin (0-0.2) mg/dl AST (13-39) U/L ALT (7-52) U/L Alkaline Phosphatase (34-104) U/L Total Protein (6.0-8.3) gm/dl Total Protein (PEP) Albumin (3.4-5.0) gm/dl Albumin (PEP) Globulin (2.5-4.0) gm/dl Albumin/Globulin Ratio (0.9-2) Ygjxk-8-Dhbmykzqp Rbikn-1-Rjdytwcpt Qkwd-0-Esyeiiry Mzrj-5-Nvngfywt Gamma Globulins Monoclonal Peak 3 Ser Monoclonl Protein Ser Monoclonal Prot 2 PEP Interpretation Lipase (11-82) U/L 25-OH Vitamin D Total (30-100) ng/ml Vit D 1,25-Dihyd Total 1,25 Dihydroxy Vit D2 1,25 Dihydroxy Vit D3 Procalcitonin 1.38 H (0-0.5) ng/ml TSH (0.300-4.500) uIu/ml PTH Intact (12.0-88.0) pg/ml PTH Related Protein Urine Color Dark Yellow Urine Appearance Clear (Clear) Urine pH 5.0 (4.5-7.5) Ur Specific [place] 1.024 (1.000-1.030) Urine Protein 1+ H (Negative) Urine Glucose (UA) Negative (Negative) Urine Ketones Trace H (Negative) Urine Blood Negative (Negative) Urine Nitrite Negative (Negative) Urine Bilirubin Negative (Negative) Urine Urobilinogen Negative (Negative) Ur Leukocyte Esterase Negative (Negative) Urine WBC (Auto) 1-5 (0-5) /hpf Urine RBC (Auto) 0-4 (0-4) /hpf U Hyaline Cast (Auto) 10-30 H (0-5) /lpf U Epithel Cells (Auto) 10-20 H (0-5) /lpf Urine Bacteria (Auto) Negative (Negative) Urine Sperm Present A (None Prsent) Nasal Screen MRSA (PCR) (Negative) SARS-CoV-2, RNA, NAAT (NEGATIVE) 10/10/22 10/10/22 10/10/22 Range/Units 14:41 13:45 13:20 WBC (4.8-10.8) K/ul RBC (4.70-6.10) M/uL Hgb (14.0-18.0) g/dl Hct (42.0-52.0) % MCV (80.0-100.0) fL MCH (25.0-34.0) pg MCHC (32.0-36.0) g/dL RDW Std Deviation (36.4-46.3) fL RDW Coeff of Ana (11.5-14.5) % Plt Count (130-400) K/uL MPV (9.4-12.4) fL Immature Gran % (Auto) % Neut % (Auto) % Lymph % (Auto) % [place] % (Auto) % Eos % (Auto) % Baso % (Auto) % Neut # (Auto) (1.40-6.50) K/uL Lymph # (Auto) (1.2-3.4) K/uL [place] # (Auto) (0.11-0.59) K/uL Eos # (Auto) (0-0.50) K/uL Baso # (Auto) (0-0.2) K/uL Immature Gran # (Auto) (0.01-0.20) K/uL PT (9.0-12.0) Seconds INR (0.9-1.1) APTT (21.0-31.0) Seconds PTT Ratio Sodium (136-145) mmol/L Potassium (3.5-5.1) mmol/L Chloride (98-107) mmol/L Carbon Dioxide (21-32) mmol/L Anion Gap (3-11) BUN (6-23) mg/dl Creatinine (0.6-1.4) mg/dl Est Cr Clr Drug Dosing Est GFR ( Amer) ml/min Est GFR (Non-Af Amer) ml/min BUN/Creatinine Ratio (10-20) Glucose (70-99(Fasting)) mg/dl Lactate (0.4-2.0) mmol/L Calcium (8.6-10.3) mg/dl Ionized Calcium (1.12-1.32) mmol/L Phosphorus (2.5-4.9) mg/dl Magnesium (1.7-2.4) mg/dl Total Bilirubin (0.2-1.0) mg/dl Direct Bilirubin 0.2 (0-0.2) mg/dl AST (13-39) U/L ALT (7-52) U/L Alkaline Phosphatase (34-104) U/L Total Protein (6.0-8.3) gm/dl Total Protein (PEP) Albumin (3.4-5.0) gm/dl Albumin (PEP) Globulin (2.5-4.0) gm/dl Albumin/Globulin Ratio (0.9-2) Ticef-4-Qdbwxxqcb Rqvsn-7-Znyoaqxki Twdd-8-Dstbeupr Ftzm-1-Avtabvgo Gamma Globulins Monoclonal Peak 3 Ser Monoclonl Protein Ser Monoclonal Prot 2 PEP Interpretation Lipase 14 (11-82) U/L 25-OH Vitamin D Total (30-100) ng/ml Vit D 1,25-Dihyd Total 1,25 Dihydroxy Vit D2 1,25 Dihydroxy Vit D3 Procalcitonin (0-0.5) ng/ml TSH 3.959 (0.300-4.500) uIu/ml PTH Intact (12.0-88.0) pg/ml PTH Related Protein Urine Color Urine Appearance (Clear) Urine pH (4.5-7.5) Ur Specific [place] (1.000-1.030) Urine Protein (Negative) Urine Glucose (UA) (Negative) Urine Ketones (Negative) Urine Blood (Negative) Urine Nitrite (Negative) Urine Bilirubin (Negative) Urine Urobilinogen (Negative) Ur Leukocyte Esterase (Negative) Urine WBC (Auto) (0-5) /hpf Urine RBC (Auto) (0-4) /hpf U Hyaline Cast (Auto) (0-5) /lpf U Epithel Cells (Auto) (0-5) /lpf Urine Bacteria (Auto) (Negative) Urine Sperm (None Prsent) Nasal Screen MRSA (PCR) (Negative) SARS-CoV-2, RNA, NAAT NEGATIVE (NEGATIVE) 10/10/22 10/10/22 10/10/22 Range/Units 13:20 11:17 11:17 WBC (4.8-10.8) K/ul RBC (4.70-6.10) M/uL Hgb (14.0-18.0) g/dl Hct (42.0-52.0) % MCV (80.0-100.0) fL MCH (25.0-34.0) pg MCHC (32.0-36.0) g/dL RDW Std Deviation (36.4-46.3) fL RDW Coeff of Ana (11.5-14.5) % Plt Count (130-400) K/uL MPV (9.4-12.4) fL Immature Gran % (Auto) % Neut % (Auto) % Lymph % (Auto) % [place] % (Auto) % Eos % (Auto) % Baso % (Auto) % Neut # (Auto) (1.40-6.50) K/uL Lymph # (Auto) (1.2-3.4) K/uL [place] # (Auto) (0.11-0.59) K/uL Eos # (Auto) (0-0.50) K/uL Baso # (Auto) (0-0.2) K/uL Immature Gran # (Auto) (0.01-0.20) K/uL PT 11.7 (9.0-12.0) Seconds INR 1.1 (0.9-1.1) APTT 26.3 (21.0-31.0) Seconds PTT Ratio 1.0 Sodium 131 L (136-145) mmol/L Potassium 4.4 (3.5-5.1) mmol/L Chloride 93 L (98-107) mmol/L Carbon Dioxide 30 (21-32) mmol/L Anion Gap 8 (3-11) BUN 35 H (6-23) mg/dl Creatinine 0.99 (0.6-1.4) mg/dl Est Cr Clr Drug Dosing Not Reportable Est GFR ( Amer) 92.9 ml/min Est GFR (Non-Af Amer) 80.2 ml/min BUN/Creatinine Ratio 35.4 H (10-20) Glucose 101 H (70-99(Fasting)) mg/dl Lactate (0.4-2.0) mmol/L Calcium 11.3 H (8.6-10.3) mg/dl Ionized Calcium (1.12-1.32) mmol/L Phosphorus 4.2 (2.5-4.9) mg/dl Magnesium 2.1 (1.7-2.4) mg/dl Total Bilirubin 0.7 (0.2-1.0) mg/dl Direct Bilirubin (0-0.2) mg/dl AST 66 H (13-39) U/L ALT 16 (7-52) U/L Alkaline Phosphatase 176 H (34-104) U/L Total Protein 6.8 (6.0-8.3) gm/dl Total Protein (PEP) Albumin 2.7 L (3.4-5.0) gm/dl Albumin (PEP) Globulin 4.1 H (2.5-4.0) gm/dl Albumin/Globulin Ratio 0.7 L (0.9-2) Msfeq-7-Rtflyhmae Ovfnf-9-Ejyfkszfk Hdgy-2-Xilqjugw Rlas-7-Kdufljpx Gamma Globulins Monoclonal Peak 3 Ser Monoclonl Protein Ser Monoclonal Prot 2 PEP Interpretation Lipase (11-82) U/L 25-OH Vitamin D Total (30-100) ng/ml Vit D 1,25-Dihyd Total 1,25 Dihydroxy Vit D2 1,25 Dihydroxy Vit D3 Procalcitonin (0-0.5) ng/ml TSH (0.300-4.500) uIu/ml PTH Intact (12.0-88.0) pg/ml PTH Related Protein Urine Color Urine Appearance (Clear) Urine pH (4.5-7.5) Ur Specific [place] (1.000-1.030) Urine Protein (Negative) Urine Glucose (UA) (Negative) Urine Ketones (Negative) Urine Blood (Negative) Urine Nitrite (Negative) Urine Bilirubin (Negative) Urine Urobilinogen (Negative) Ur Leukocyte Esterase (Negative) Urine WBC (Auto) (0-5) /hpf Urine RBC (Auto) (0-4) /hpf U Hyaline Cast (Auto) (0-5) /lpf U Epithel Cells (Auto) (0-5) /lpf Urine Bacteria (Auto) (Negative) Urine Sperm (None Prsent) Nasal Screen MRSA (PCR) (Negative) SARS-CoV-2, RNA, NAAT (NEGATIVE) 10/10/22 Range/Units 11:17 WBC 19.21 H (4.8-10.8) K/ul RBC 3.72 L (4.70-6.10) M/uL Hgb 10.1 L (14.0-18.0) g/dl Hct 31.6 L (42.0-52.0) % MCV 84.9 (80.0-100.0) fL MCH 27.2 (25.0-34.0) pg MCHC 32.0 (32.0-36.0) g/dL RDW Std Deviation 48.2 H (36.4-46.3) fL RDW Coeff of Ana 16.2 H (11.5-14.5) % Plt Count 337 (130-400) K/uL MPV 9.1 L (9.4-12.4) fL Immature Gran % (Auto) 2.3 % Neut % (Auto) 84.3 % Lymph % (Auto) 6.1 % [place] % (Auto) 7.0 % Eos % (Auto) 0.1 % Baso % (Auto) 0.2 % Neut # (Auto) 16.19 H (1.40-6.50) K/uL Lymph # (Auto) 1.18 L (1.2-3.4) K/uL [place] # (Auto) 1.35 H (0.11-0.59) K/uL Eos # (Auto) 0.01 (0-0.50) K/uL Baso # (Auto) 0.04 (0-0.2) K/uL Immature Gran # (Auto) 0.44 H (0.01-0.20) K/uL PT (9.0-12.0) Seconds INR (0.9-1.1) APTT (21.0-31.0) Seconds PTT Ratio Sodium (136-145) mmol/L Potassium (3.5-5.1) mmol/L Chloride (98-107) mmol/L Carbon Dioxide (21-32) mmol/L Anion Gap (3-11) BUN (6-23) mg/dl Creatinine (0.6-1.4) mg/dl Est Cr Clr Drug Dosing Est GFR ( Amer) ml/min Est GFR (Non-Af Amer) ml/min BUN/Creatinine Ratio (10-20) Glucose (70-99(Fasting)) mg/dl Lactate (0.4-2.0) mmol/L Calcium (8.6-10.3) mg/dl Ionized Calcium (1.12-1.32) mmol/L Phosphorus (2.5-4.9) mg/dl Magnesium (1.7-2.4) mg/dl Total Bilirubin (0.2-1.0) mg/dl Direct Bilirubin (0-0.2) mg/dl AST (13-39) U/L ALT (7-52) U/L Alkaline Phosphatase (34-104) U/L Total Protein (6.0-8.3) gm/dl Total Protein (PEP) Albumin (3.4-5.0) gm/dl Albumin (PEP) Globulin (2.5-4.0) gm/dl Albumin/Globulin Ratio (0.9-2) Ytkji-2-Vtahubbzd Tvnnh-0-Eroxqlkqm Thnm-3-Qbkrmelr Jwwi-6-Nwfcomfo Gamma Globulins Monoclonal Peak 3 Ser Monoclonl Protein Ser Monoclonal Prot 2 PEP Interpretation Lipase (11-82) U/L 25-OH Vitamin D Total (30-100) ng/ml Vit D 1,25-Dihyd Total 1,25 Dihydroxy Vit D2 1,25 Dihydroxy Vit D3 Procalcitonin (0-0.5) ng/ml TSH (0.300-4.500) uIu/ml PTH Intact (12.0-88.0) pg/ml PTH Related Protein Urine Color Urine Appearance (Clear) Urine pH (4.5-7.5) Ur Specific [place] (1.000-1.030) Urine Protein (Negative) Urine Glucose (UA) (Negative) Urine Ketones (Negative) Urine Blood (Negative) Urine Nitrite (Negative) Urine Bilirubin (Negative) Urine Urobilinogen (Negative) Ur Leukocyte Esterase (Negative) Urine WBC (Auto) (0-5) /hpf Urine RBC (Auto) (0-4) /hpf U Hyaline Cast (Auto) (0-5) /lpf U Epithel Cells (Auto) (0-5) /lpf Urine Bacteria (Auto) (Negative) Urine Sperm (None Prsent) Nasal Screen MRSA (PCR) (Negative) SARS-CoV-2, RNA, NAAT (NEGATIVE) Medications Administered Current Inpatient Medications Acetaminophen (Acetaminophen 325 Mg Tab) 650 mg PO Q4H PRN PRN Reason: Pain or Fever Stop: 11/09/22 20:29 Al Hydrox/Mg Hydrox/Simethicone (Aluminum/Magnesium Susp 30 Ml Udc) 15 ml PO Q4H PRN PRN Reason: Dyspepsia Stop: 11/09/22 20:29 Ergocalciferol (Ergocalciferol 50,000 Units 1250 Mcg Cap) 50,000 units PO Q4D@0900 [facility] Stop: 11/16/22 09:01 Heparin Sodium/Dextrose (Heparin Sodium/Dextrose) 25,000 units in 500 mls @ 23 mls/hr IV .[id number] [facility]; Protocol Stop: 11/09/22 17:14 Last Titration: 10/11/22 01:15 Dose: 1,150 units/hr, 23 mls/hr Piperacillin Sod/Tazobactam (Sod 3.375 gm/ Dextrose) 115 mls @ 28.75 mls/hr IV Q8H [facility]; Protocol Stop: 10/17/22 21:59 Last Admin: 10/11/22 05:34 Dose: 28.8 mls/hr Sodium Chloride (Nss 1000ml) 1,000 mls @ 125 mls/hr IV .Q8H [facility] Stop: 10/11/22 12:29 Last Admin: 10/10/22 21:34 Dose: 125 mls/hr Magnesium Hydroxide (Magnesium Hydroxide Susp 30 Ml Udc) 30 ml PO Q12H PRN PRN Reason: Constipation Stop: 11/09/22 20:29 Morphine Sulfate (Morphine Sulfate 4 Mg/Ml 1 Ml Carp\Vial) 2 mg IV Q4H PRN PRN Reason: Pain Stop: 10/24/22 20:29 Last Admin: 10/10/22 21:35 Dose: 2 mg Ondansetron HCl (Ondansetron Inj 2 Mg/Ml 2 Ml Vial) 4 mg IV Q6H PRN PRN Reason: Nausea Stop: 11/09/22 20:29 Polyethylene Glycol (Polyethylene (Miralax) 17 Gm Pack) 17 gm PO DAILY PRN PRN Reason: Constipation Stop: 11/09/22 20:29
[2022-10-11] MEDS ORDERED: ERGOCALCIFEROL 50,000 UNITS 1250 MCG CAP PO SCH (09:00)
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
--- NOTE | 2022-10-11 10:36 | Orthopedic Consultation ---
Date of Consultation October 11, 2022 Assessment & Plan (1) Metastatic cancer: Assessment metastatic renal cell carcinoma throughout the lumbar spine and pelvis. Plan at this time could consider cervical immobilization but I am not convinced this provide any significant stabilization or improvement in his ou tcome. It would be most likely be more uncomfortable than beneficial. He is not a surgical candidate in light of the extensive disease and type of cancer. History of Present Illness Reason for Consultation: T2 fracture Attending Physician: Fabian Napier MD History of Present Illness This is a 66-year-old male who presents yesterday with severe back pain and inability ambulate. He states he has been this disc condition for approximately 1 week. Denies any precipitating trauma fall or event. He does not describe any significant cervical discomfort at this time. Most of his pain is in the lower lumbar region and pelvic area. He notes weakness to the bilateral lower extremities. Allergies Allergy/AdvReac Type Severity Reaction Status Date / Time No Known Allergies Allergy Verified 10/10/22 15:02 Home Medications Medication Instructions Recorded Confirmed Type No Known Home Medications 10/10/22 10/10/22 History Patient History Medical History Chronic back pain History of alcohol use History of tobacco use Surgical History No significant past surgical history Family History Other Cancer Social History Smoking Status: Former smoker Tobacco Type: Cigarettes packs per day: 3; Second Hand Exposure: Yes; Do You Dip or Chew Tobacco: No; Tobacco Cessation Education Requested by Patient: No Hx Alcohol Use: No (former) Hx Substance Use: No Preferred Language: Setswana Communication Ability: Effective Health Assistant Required: No Beliefs That Will Affect Care: None Current Living Situation: Other Current Living Situation Comment: [facility] Other Information That Helps Us Care for You: No Feels Safe at Home: Declines to Answer Assistive Devices: None Physical Exam Physical Exam: Patient is alert and oriented. He has reasonable passive range of motion of the cervical spine without pain. He has reasonable strength testing upper extremities plantarflexion dorsiflexion is intact but diminished bilateral lower extremities. Results & Data Vital Signs (Past 12 Hours) Vital Signs Temp Pulse Pulse Resp BP BP Pulse Ox 10/11/22 08:00 36.6 C 97 H 18 96/62 L 96 10/10/22 23:00 90 10/11/22 03:00 36.6 C 91 H 18 96/62 L 97 O2 Del Method 10/11/22 08:00 Room Air 10/10/22 23:00 10/11/22 03:00 Room Air (1) Metastatic cancer Area of secondary neoplastic involvement: bone Qualified Code(s): C79.51 - Secondary malignant neoplasm of bone
--- NOTE | 2022-10-11 11:07 | Oncology Consultation ---
Date of Consultation October 11, 2022 Assessment & Plan (1) Renal mass: (2) Deep vein thrombosis of iliac vein of left lower extremity: (3) Hypercalcemia: Plan -Likely metastatic renal cell carcinoma based on imaging. Also has large thyroid nodule which is less likely primary. After discussing with interventional radiology, would recommend CT guided biopsy of right posterior iliac bone lesion to confirm malignancy and identify primary -Agree with Heparin for DVT. Can convert to LMWH or DOAC prior to discharge from hospital -Consider giving renally dosed zometa for hypercalcemia. -Will defer to orthopedics regarding impending left femur neck fracture as he may need stabilization -Radiation oncology evaluation as he may benefit from palliative RT for pain control -I am working from home today but will see patient in person tomorrow to discuss overall plan from oncologic perspective. Will hopefully have preliminary pathology results at that time. History of Present Illness Reason for Consultation: Likely metastatic cancer Attending Physician: Fabian Napier MD History of Present Illness 66-year-old male from [facility] who presented with worsening back pain and weakness. CT abdomen/pelvis revealed large infiltrative right renal mass likely representing the primary malignancy, extensive metastatic disease with destructive/lytic lesions and multiple pathologic fractures, thrombus of the left common and internal iliac veins, Small lytic lesion within the left femoral neck favor an impending fracture.CTA Chest revealed numerous lytic bony lesions with associated soft tissue masses concerning for osseous metastases and large rim calcified thyroid nodule. CT Cervical spine revealed scattered lytic lesions within the lower cervical and thoracic spine consistent with metastatic disease, pathologic nondisplaced fracture within the left C7 transverse process, Pathologic burst fracture at T2 and a 6.2 cm peripherally calcified cystic left thyroid nodule. CT head without contrast was negative for acute process. Allergies Allergy/AdvReac Type Severity Reaction Status Date / Time No Known Allergies Allergy Verified 10/10/22 15:02 Home Medications Medication Instructions Recorded Confirmed Type No Known Home Medications 10/10/22 10/10/22 History Patient History Medical History (Updated 10/11/22 @ 11:42 by Kenia Nolan MD) Advanced care planning/counseling discussion Cancer related pain Chronic back pain History of alcohol use History of tobacco use 3 PPD smoker Palliative care by specialist Weakness generalized Surgical History No significant past surgical history Family History Other Cancer Social History Smoking Status: Former smoker Tobacco Type: Cigarettes packs per day: 3; Second Hand Exposure: Yes; Do You Dip or Chew Tobacco: No; Tobacco Cessation Education Requested by Patient: No Hx Alcohol Use: No (former) Hx Substance Use: No Preferred Language: French Communication Ability: Effective Pipe Installer Required: No Beliefs That Will Affect Care: None Current Living Situation: Other Current Living Situation Comment: JANESSA Delgadillo Other Information That Helps Us Care for You: No Feels Safe at Home: Declines to Answer Assistive Devices: None Results & Data Vital Signs (Past 12 Hours) Vital Signs Temp Pulse Pulse Resp BP BP Pulse Ox 10/11/22 08:00 36.6 C 97 H 18 96/62 L 96 10/10/22 23:00 90 10/11/22 03:00 36.6 C 91 H 18 96/62 L 97 O2 Del Method 10/11/22 08:00 Room Air 10/10/22 23:00 10/11/22 03:00 Room Air (2) Deep vein thrombosis of iliac vein of left lower extremity Chronicity: acute Qualified Code(s): I82.422 - Acute embolism and thrombosis of left iliac vein
[2022-10-11] MEDS ORDERED: ACETAMINOPHEN 1000 MG/100 ML IV IV ONE (11:57)
[2022-10-11] MEDS ORDERED: fentaNYL citrate PF 100 MCG/2 ML VIAL ONE (11:57)
[2022-10-11] MEDS ORDERED: XYLOCAINE 1%/SOD BICARB 20 ML VIAL INFIL ONE (11:58)
--- NOTE | 2022-10-11 12:11 | Consultation Report ---
NEPHROLOGY CONSULTATION NOTE REASON FOR CONSULTATION: Hypercalcemia. HISTORY OF PRESENT ILLNESS: The patient is a 66-year-old male who is currently in the [facility]. He was brought to the hospital because of ambulatory dysfunction, back pain, severe weight loss. The symptoms have been getting progressively weak, but especially so in the last 1 week. The patien t has a history of intermittent hematuria, which has been going on for years. Workup done in the [facility] shows multiple lytic lesions throughout the cervical spine as well as thoracic spine consistent with metastatic disease as well as pathological fracture in multiple areas. CT scan of the chest, a bdomen, and pelvis showed large right renal mass representing primary renal carcinoma. Blood work sh owed slightly low sodium, high calcium. Since being admitted, the patient did receive zoledronic aci d and normal saline and with that calcium this morning is already back to normal. Ionized calcium is still slightly high at 1.43. ALLERGIES: None. HOME MEDICATIONS: None. PAST MEDICAL HISTORY: Chronic back pain, history of alcohol abuse in the past, history of tobacco ab use. PAST SURGICAL HISTORY: None past surgical history. FAMILY HISTORY: Negative for renal disease or dialysis. SOCIAL HISTORY: Former smoker and heavy drinker. He has been in the longterm for a long time. REVIEW OF SYSTEMS: Positive for major weight loss, weakness, poor appetite, intermittent gross hemat uria, back pain, and weakness. PHYSICAL EXAMINATION: GENERAL: Very cachectic, chronically ill-appearing, middle-aged white male who is not in any overt r espiratory distress, but he appears weak and frail. VITAL SIGNS: Blood pressure is 96/62, pulse rate 97, temperature 36.6, 96% on room air. CHEST: Bilateral decreased breath sounds, occasional crackles. CARDIOVASCULAR: S1 and S2, regular. ABDOMEN: Soft, nontender. EXTREMITIES: Show no edema. LABORATORY TESTS: From this morning show sodium 131, potassium 4.3, chloride 97, bicarbonate 28, BUN 33, creatinine 1.0. Ionized calcium slightly elevated at 1.43, magnesium 1.9. Serum albumin is 2.7 on admission. Serum calcium was 11.3, this morning it is 9.7, but corrected calcium is still high. IMAGING DATA: CT chest, abdomen and pelvis, chest x-ray, as well as head CT was reviewed and shows m ost likely primary renal cell carcinoma with very extensive metastasis to all parts of the body. ASSESSMENT AND PLAN: A 66-year-old male with what appears to be advanced metastatic malignancy, most likely primary renal cell carcinoma. I have been consulted for hypercalcemia. Hypercalcemia. Based on the imaging finding, hypercalcemia is related with metastatic cancer with mul tiple lytic lesions. No further workup is needed as the diagnosis and etiology is clear at this poin t. The patient already received zoledronic acid, which is reasonable. Ionized calcium is still slig htly high. We can continue the normal saline for the time being. Oncology note as well as palliativ e medicine note was reviewed. No further advice from renal standpoint. He does not need any other m edication at this point to bring down the calcium. Thank you very much for the consult. Job ID: [id number]
[2022-10-11] MEDS: SODIUM CHLORIDE 0.9% 1000ML 1,000 ML IV SCH (15:01)
--- NOTE | 2022-10-11 15:34 | CT Scan Report ---
CT-guided right iliac bone lesion core biopsy INDICATION: Renal mass with bony metastasis PROCEDURE: Procedure and risks were explained. Informed consent was obtained. A final timeout was com pleted. The patient was placed supine on the CT exam table. The right lateral pelvis was prepped and draped in sterile fashion. 1% buffered lidocaine was utilized for skin anesthesia. The patient receiv ed 50 mcg fentanyl IV for pain. Utilizing CT guidance, a 17-gauge coaxial needle was advanced down into the right posterior iliac bon e lesion. An 18-gauge core biopsy needle was advanced, and two 3.3 cm cores were obtained and given t o the pathologist for review. The coaxial needle was removed and Band-Aid applied. The patient tolera mason the procedure well. Post CT scan demonstrated no procedural complication. IMPRESSION: CT-guided right iliac bone lesion core biopsy as above. Performed, dictated, and signed by Davis Bang PA-C; to be co-signed by Dr. Mo Martinez. Electronically signed by: Mo Martinez M.D. 10/11/2022 3:58 PM
[2022-10-11] MEDS: HEPARIN SODIUM/DEXTROSE 25,000 UNITS/500 ML BAG IV SCH ×2 (20:12→23:26)
[2022-10-11 22:07] LABS: Partial Thromboplastin Ratio 1.4; Partial Thromboplastin Time 37.9 Seconds (21.0-31.0)
[2022-10-12] MEDS ORDERED: HEPARIN SOD (PORCINE) 1000 UNIT/ML IV ONE (00:15)
[2022-10-12] MEDS: PIPERACILLIN/TAZOBACTAM 3.375 GM in DEXTROSE 5% 100 ML IV SCH (06:22)
[2022-10-12 06:33] LABS: Basophils # (auto) 0.03 K/uL (0-0.2); Basophils % (auto) 0.3 %; Eosinophils # (auto) 0.01 K/uL (0-0.50); Eosinophils % (auto) 0.1 %; Hemoglobin 7.8 g/dl (14.0-18.0); Immature Granulocytes # (auto) 0.42 K/uL (0.01-0.20); Immature Granulocytes % (auto) 3.6 %; Lymphocytes # (auto) 0.59 K/uL (1.2-3.4); Lymphocytes % (auto) 5.1 %; Mean Corpuscular Hemoglobin 27.2 pg (25.0-34.0); Mean Corpuscular Hgb Conc 32.5 g/dL (32.0-36.0); Mean Corpuscular Volume 83.6 fL (80.0-100.0); Mean Platelet Volume 8.8 fL (9.4-12.4); Monocytes # (auto) 0.78 K/uL (0.11-0.59); Monocytes % (auto) 6.7 %; Neutrophils # (auto) 9.76 K/uL (1.40-6.50); Neutrophils % (auto) 84.2 %; Platelet Count 292 K/uL (130-400); RDW Coefficient of Variation 16.5 % (11.5-14.5); RDW Standard Deviation 49.3 fL (36.4-46.3); Red Blood Count 2.87 M/uL (4.70-6.10); White Blood Count 11.59 K/ul (4.8-10.8)
[2022-10-12 06:54] LABS: BUN Creatinine Ratio 26.9 (10-20); Calcium 8.1 mg/dl (8.6-10.3); Creatinine Clr Calc Pharmacy 58.7 ml/min; Est GFR (African American) 83.6 ml/min; Est GFR (Non-African American) 72.2 ml/min; Magnesium 1.7 mg/dl (1.7-2.4); Phosphorus 2.8 mg/dl (2.5-4.9); Potassium 3.8 mmol/L (3.5-5.1)
--- NOTE | 2022-10-12 07:42 | Hematology/Oncology Prog Note ---
Date of Service October 12, 2022 Assessment & Plan (1) Renal cell adenocarcinoma: (2) Bone metastases: Plan 66-year-old gentleman recently diagnosed with metastatic renal cell carcinoma. I had an extensive discussion with patient today regarding his diagnosis as well as treatment options. Explained to him that based on imaging and preliminary pathology results, he has stage IV renal cell carcinoma for which goals of treatment to be to prolong life and improve symptoms. I discussed options of treatment with patient including combination immunotherapy treatment or immunotherapy with antiangiogenic therapy. Also discussed option of supportive care/hospice. Patient indicated that he would not want systemic therapy for metastatic malignancy. He clearly indicated that he would prefer supportive care/hospice. Palliative care is currently on board and can help with this pro cess Oncology will therefore sign off at this time. Please feel free to call if you have any questions or if patient decides to receive systemic therapy Admission and Anticipated Discharge Date Admission Date: October 10, 2022 Subjective He complains of back pain. Preliminary pathology results from CT-guided bone biopsy obtained yesterday suggestive of metastatic renal cell carcinoma Review of Systems Review of Systems: All systems reviewed & are unremarkable except as noted in Subjective Results & Data Vital Signs (Past 12 Hours) Vital Signs Temp Pulse Pulse Resp BP Pulse Ox O2 Del Method 10/12/22 03:44 36.8 C 99 H 19 96/62 L 94 Room Air 10/11/22 23:24 36.8 C 103 H 18 100/64 93 Room Air 10/11/22 22:03 110 H 10/11/22 19:55 36.6 C 104 H 20 102/63 96 Room Air
[2022-10-12 07:53] LABS: Partial Thromboplastin Ratio 1.7
--- NOTE | 2022-10-12 08:09 | Hospitalist Progress Note ---
Date of Service October 12, 2022 Assessment & Plan (1) Metastatic cancer: (2) Weakness: (3) Acute exacerbation of chronic low back pain: (4) Ambulatory dysfunction: (5) Pathologic rib fracture: (6) Burst fracture of thoracic vertebra: (7) Hypercalcemia: (8) Urinary retention: (9) Leukocytosis: (10) History of alcohol use: (11) History of tobacco use: Plan This is a 66-year-old male from [facility] with PMH of chronic back pain who presents for evaluation of worsening acute on chronic back pain, weakness, ambulatory dysfunction over the past week and was found to have extensive metastatic cancer with likely renal mass as primary malignancy. Worsening weakness Acute on chronic back pain Extensive metastatic cancer with likely renal mass as primary malignancy In setting of worsening back pain, ambulatory dysfunction, weakness Extensive metastatic disease with destructive/lytic lesions and multiple pathologic fractures, soft tissue involvement CT abd/pelvis with * a large infiltrative right renal mass likely representing the primary malignancy * extensive metastatic disease as described above with destructive/lytic lesions and multiple pathologic fractures * thrombus of the left common and internal iliac veins * small lytic lesion within the left femoral neck favor an impending fracture Chest CTA with numerous lytic bony lesions are seen with associated soft tissue masses concerning for osseous metastases. Large rim calcified thyroid nodule is seen, if not previously evaluated, ultrasound can be performed Consulted heme onc and palliative services for extensive new cancer diagnosis, prognosis and goals/treatment CT-guided right iliac bone lesion core biopsy was obtained (10/11/2022) - Preliminary pathology results from CT-guided bone biopsy obtained yesterday suggestive of metastatic renal cell carcinoma Oncologist, Dr. Nolan discussed in detail diagnosis, prognosis, treatment options with the pt. Patient declined any treatment and instead interested in comfort care/hospice. I then confirmed with the patient myself, he is not interested in any treatment (2 guards also present at the bedside). Discussed in person with CM. Per CM, [facility], however not over [facility]. Pain control for multiple pathologic fractures - oxycodone prn, also will try decadron IV heparin was started for thrombus of L common and internal iliac veins. Will stop now as pt interested in comfort care/ hospice. T2 pathologic burst fracture Cervical spine CT with * Scattered lytic lesions within the lower cervical and thoracic spine consistent with metastatic disease. * Pathologic nondisplaced fracture within the left C7 transverse process. * Pathologic burst fracture at T2. No associated retropulsion. * A 6.2 cm peripherally calcified cystic left thyroid nodule. Dr. Herron- ortho-spine consulted given T2 burst fracture - Assessment - metastatic renal cell carcinoma throughout the lumbar spine and pelvis. Plan at this time could consider cervical immobilization but I am not convinced this provide any significant stabilization or improvement in his outcome. It would be most likely be more uncomfortable than beneficial. He is not a surgical candidate in light of the extensive disease and type of cancer. Hypercalcemia In setting of metastatic cancer with multiple lytic lesions, also dehydration likely a component Serum calcium 11.3 on admission ionized calcium next a.m. 1.43 Given 1 time dose of zolendronic acid Hypercalcemia work-up ordered vit D level low at 9.3, PTH 12.9 nl further discussed w/ nephrology - no further work-up necessary, calcium level improved Urinary retention Urinary retention noted on imaging, hydronephrosis in setting of large right renal mass Urias catheter placed in ED Urology consulted - Suspected right kidney cancer with numerous metastases. Patient does have right-sided hydronephrosis due the mass however creatinine is not elevated at the moment and no concern for UTI so I do not think placing a stent is necessary at this time. No acute urologic intervention necessary. Pt removed catheter overnight. Discussed and explained why it was placed - he does not wish to have it placed Leukocytosis Meeting SIRs criteria with WBC 19k, HR 105, lactate 3, procal of 1.38 but no clear infectious source Could be reactive given extensive cancer burden, dehydration Covered with empirically w/ Zosyn, follow blood culture WBC down to 12K No infectious source found so far, will HENRY forbes History of significant tobacco use, alcohol use Endorses smoking 3 packs/day prior to time and JANESSA Delgadillo, unable to ch aracterize length of time smoking. Also endorsing heavy alcohol use in the past DVT Ppx: IV heparin - will stop now Code status: Full code PCP: JANESSA Delgadillo Dispo: Admitted to PCU -> plan for hospice/ comfort care Admission and Anticipated Discharge Date Admission Date: October 10, 2022 Subjective Pt seen in follow up of weakness, back pain, poss. sepsis w/ leukocytosis, found to have renal mass and extensive metastases, hydronephrosis, hypercalcemia Currently laying in bed in NAD Per RN, pulled Urias catheter overnight. Discussed and explained why it was placed - he does not wish to have it placed Seen by oncologist, Dr. Nolan and explained diagnosis, prognosis and treatment options - pt declined any treatment options - I discussed this w/ Dr. Nolan in detail. I then spoke to the pt myself and he confirmed with me that he does not wish to have any treatment (2 guards present at the bedside) and is interested in comfort care/ hospice. Discussed possible hospice w/ CM in person. Per CM - [facility]. Currently pt is laying in bed , reports back pain but no other complaints No chest pain, no shortness of breath, no abdominal pain Review of Systems Review of Systems: All systems reviewed & are unremarkable except as noted in Subjective Physical Exam Physical Exam: General Appearance: Thin/cachetic, frail, chronically ill-appearing, no apparent distress Head: normocephalic, Atraumatic Eyes: normal inspection, EOMI Neck: supple Respiratory/Chest: Normal breath sounds, CTA, No accessory muscle use Cardiovascular: S1, S2, No murmur Abdomen/GI: Soft, Non tender, Bowel sounds present Back: Tender to palpation Extremities/Musculoskeletal: normal inspection, no edema Neurologic/Psych: AAOX3, speech fluent, no facial asymmetry, moves extremities Skin: normal color, warm, +Tattoos Results & Data Results & Data Vital Signs (Past 12 Hours) Vital Signs Temp Pulse Pulse Resp BP Pulse Ox O2 Del Method 10/12/22 03:44 36.8 C 99 H 19 96/62 L 94 Room Air 10/11/22 23:24 36.8 C 103 H 18 100/64 93 Room Air 10/11/22 22:03 110 H Laboratory Results 10/12/22 10/12/22 10/12/22 Range/Units 06:00 06:00 06:00 WBC 11.59 H (4.8-10.8) K/ul RBC 2.87 L (4.70-6.10) M/uL Hgb 7.8 L (14.0-18.0) g/dl Hct 24.0 L (42.0-52.0) % MCV 83.6 (80.0-100.0) fL MCH 27.2 (25.0-34.0) pg MCHC 32.5 (32.0-36.0) g/dL RDW Std Deviation 49.3 H (36.4-46.3) fL RDW Coeff of Ana 16.5 H (11.5-14.5) % Plt Count 292 (130-400) K/uL MPV 8.8 L (9.4-12.4) fL Immature Gran % (Auto) 3.6 % Neut % (Auto) 84.2 % Lymph % (Auto) 5.1 % Hodgeman % (Auto) 6.7 % Eos % (Auto) 0.1 % Baso % (Auto) 0.3 % Neut # (Auto) 9.76 H (1.40-6.50) K/uL Lymph # (Auto) 0.59 L (1.2-3.4) K/uL Hodgeman # (Auto) 0.78 H (0.11-0.59) K/uL Eos # (Auto) 0.01 (0-0.50) K/uL Baso # (Auto) 0.03 (0-0.2) K/uL Immature Gran # (Auto) 0.42 H (0.01-0.20) K/uL APTT 48.0 H* (21.0-31.0) Seconds PTT Ratio 1.7 Sodium 130 L (136-145) mmol/L Potassium 3.8 (3.5-5.1) mmol/L Chloride 98 (98-107) mmol/L Carbon Dioxide 25 (21-32) mmol/L Anion Gap 7 (3-11) BUN 29 H (6-23) mg/dl Creatinine 1.08 (0.6-1.4) mg/dl Est Cr Clr Drug Dosing 58.7 ml/min Est GFR ( Amer) 83.6 ml/min Est GFR (Non-Af Amer) 72.2 ml/min BUN/Creatinine Ratio 26.9 H (10-20) Glucose 103 H (70-99(Fasting)) mg/dl Calcium 8.1 L (8.6-10.3) mg/dl Phosphorus 2.8 D (2.5-4.9) mg/dl Magnesium 1.7 (1.7-2.4) mg/dl U Random Total Protein Ur Creatinine mg/dL Protein/Creatinin Ratio Urine Albumin (%) U Xbetp-3-Lwuqtvfa (%) U Nwlkz-8-Jutjwnpm (%) U Beta Globulin (%) U Gamma Globulin (%) U Abnormal Prot Band 1 U Abnormal Prot Band 2 U Abnormal Prot Band 3 Urine PEP Interpret 10/11/22 10/11/22 Range/Units 21:13 16:25 WBC (4.8-10.8) K/ul RBC (4.70-6.10) M/uL Hgb (14.0-18.0) g/dl Hct (42.0-52.0) % MCV (80.0-100.0) fL MCH (25.0-34.0) pg MCHC (32.0-36.0) g/dL RDW Std Deviation (36.4-46.3) fL RDW Coeff of Ana (11.5-14.5) % Plt Count (130-400) K/uL MPV (9.4-12.4) fL Immature Gran % (Auto) % Neut % (Auto) % Lymph % (Auto) % Hodgeman % (Auto) % Eos % (Auto) % Baso % (Auto) % Neut # (Auto) (1.40-6.50) K/uL Lymph # (Auto) (1.2-3.4) K/uL Hodgeman # (Auto) (0.11-0.59) K/uL Eos # (Auto) (0-0.50) K/uL Baso # (Auto) (0-0.2) K/uL Immature Gran # (Auto) (0.01-0.20) K/uL APTT 37.9 H (21.0-31.0) Seconds PTT Ratio 1.4 Sodium (136-145) mmol/L Potassium (3.5-5.1) mmol/L Chloride (98-107) mmol/L Carbon Dioxide (21-32) mmol/L Anion Gap (3-11) BUN (6-23) mg/dl Creatinine (0.6-1.4) mg/dl Est Cr Clr Drug Dosing ml/min Est GFR ( Amer) ml/min Est GFR (Non-Af Amer) ml/min BUN/Creatinine Ratio (10-20) Glucose (70-99(Fasting)) mg/dl Calcium (8.6-10.3) mg/dl Phosphorus (2.5-4.9) mg/dl Magnesium (1.7-2.4) mg/dl U Random Total Protein Pending Ur Creatinine mg/dL Pending Protein/Creatinin Ratio Pending Urine Albumin (%) Pending U Xfytb-9-Zesofrce (%) Pending U Dyhkq-6-Ongwiplm (%) Pending U Beta Globulin (%) Pending U Gamma Globulin (%) Pending U Abnormal Prot Band 1 Pending U Abnormal Prot Band 2 Pending U Abnormal Prot Band 3 Pending Urine PEP Interpret Pending Medications Administered Current Inpatient Medications Acetaminophen (Acetaminophen 325 Mg Tab) 650 mg PO Q4H PRN PRN Reason: Pain or Fever Stop: 11/09/22 20:29 Al Hydrox/Mg Hydrox/Simethicone (Aluminum/Magnesium Susp 30 Ml Udc) 15 ml PO Q4H PRN PRN Reason: Dyspepsia Stop: 11/09/22 20:29 Ergocalciferol (Ergocalciferol 50,000 Units 1250 Mcg Cap) 50,000 units PO Q4D@0900 [facility] Stop: 11/16/22 09:01 Last Admin: 10/11/22 09:31 Dose: 50,000 units Heparin Sodium/Dextrose (Heparin Sodium/Dextrose) 25,000 units in 500 mls @ 26 mls/hr IV .[id number] [facility]; Protocol Stop: 11/09/22 17:14 Last Admin: 10/11/22 23:26 Dose: 1,300 units/hr, 26 mls/hr Piperacillin Sod/Tazobactam (Sod 3.375 gm/ Dextrose) 115 mls @ 28.75 mls/hr IV Q8H [facility]; Protocol Stop: 10/17/22 21:59 Last Admin: 10/12/22 06:22 Dose: 28.8 mls/hr Magnesium Hydroxide (Magnesium Hydroxide Susp 30 Ml Udc) 30 ml PO Q12H PRN PRN Reason: Constipation Stop: 11/09/22 20:29 Magnesium Oxide (Magnesium Oxide 400 Mg Tab) 400 mg PO QAM [facility] Stop: 11/11/22 08:59 Morphine Sulfate (Morphine Sulfate 4 Mg/Ml 1 Ml Carp\Vial) 2 mg IV Q4H PRN PRN Reason: Pain Stop: 10/24/22 20:29 Last Admin: 10/10/22 21:35 Dose: 2 mg Ondansetron HCl (Ondansetron Inj 2 Mg/Ml 2 Ml Vial) 4 mg IV Q6H PRN PRN Reason: Nausea Stop: 11/09/22 20:29 Polyethylene Glycol (Polyethylene (Miralax) 17 Gm Pack) 17 gm PO DAILY PRN PRN Reason: Constipation Stop: 11/09/22 20:29
[2022-10-12 08:11] LABS: RBC Morphology Unremarkable
[2022-10-12] MEDS: MAGNESIUM OXIDE 400 MG TAB PO SCH (11:23)
[2022-10-12] MEDS: oxyCODONE HCL IR 5 MG TAB (IMMEDIATE RELEASE) PO PRN (12:19)
[2022-10-12] MEDS: dexAMETHasone 1 MG TAB PO SCH (12:20)
[2022-10-12] MEDS: LIDOCAINE 5% 1 PATCH TD SCH (12:20)
[2022-10-13] MEDS: oxyCODONE HCL IR 5 MG TAB (IMMEDIATE RELEASE) PO PRN ×4 (02:29→22:00)
[2022-10-13 06:15] LABS: BUN Creatinine Ratio 32.3 (10-20); Calcium 7.4 mg/dl (8.6-10.3); Creatinine Clr Calc Pharmacy 64.1 ml/min; Est GFR (African American) 92.9 ml/min; Est GFR (Non-African American) 80.2 ml/min; Magnesium 1.9 mg/dl (1.7-2.4); Phosphorus 2.4 mg/dl (2.5-4.9); Potassium 4.2 mmol/L (3.5-5.1)
[2022-10-13 06:31] LABS: Partial Thromboplastin Ratio 1.2; Partial Thromboplastin Time 32.2 Seconds (21.0-31.0)
--- NOTE | 2022-10-13 08:26 | Hospitalist Progress Note ---
Date of Service October 13, 2022 Assessment & Plan (1) Metastatic cancer: (2) Weakness: (3) Acute exacerbation of chronic low back pain: (4) Ambulatory dysfunction: (5) Pathologic rib fracture: (6) Burst fracture of thoracic vertebra: (7) Hypercalcemia: (8) Urinary retention: (9) Leukocytosis: (10) History of alcohol use: (11) History of tobacco use: Plan This is a 66-year-old male from [facility] with PMH of chronic back pain who presents for evaluation of worsening acute on chronic back pain, weakness, ambulatory dysfunction over the past week and was found to have extensive metastatic cancer with likely renal mass as primary malignancy. Worsening weakness Acute on chronic back pain Extensive metastatic cancer with likely renal mass as primary malignancy In setting of worsening back pain, ambulatory dysfunction, weakness Extensive metastatic disease with destructive/lytic lesions and multiple pathologic fractures, soft tissue involvement CT abd/pelvis with * a large infiltrative right renal mass likely representing the primary malignancy * extensive metastatic disease as described above with destructive/lytic lesions and multiple pathologic fractures * thrombus of the left common and internal iliac veins * small lytic lesion within the left femoral neck favor an impending fracture Chest CTA with numerous lytic bony lesions are seen with associated soft tissue masses concerning for osseous metastases. Large rim calcified thyroid nodule is seen, if not previously evaluated, ultrasound can be performed Consulted heme onc and palliative services for extensive new cancer diagnosis, prognosis and goals/treatment CT-guided right iliac bone lesion core biopsy was obtained (10/11/2022) - Preliminary pathology results from CT-guided bone biopsy suggestive of metastatic renal cell carcinoma Oncologist, Dr. Nolan discussed in detail diagnosis, prognosis, treatment options with the pt. Patient declined any treatment and instead interested in comfort care/hospice. I then confirmed with the patient myself, he is not interested in any treatment (2 guards also present at the bedside). Discussed in person with CM. Per CM, sn[facility] is able to provide hospice care, however not over the weekend. Pain control for multiple pathologic fractures - oxycodone prn, decadron IV heparin was started on admission for thrombus of L common and internal iliac veins. Stopped now as pt interested in comfort care/ hospice. T2 pathologic burst fracture Cervical spine CT with * Scattered lytic lesions within the lower cervical and thoracic spine consistent with metastatic disease. * Pathologic nondisplaced fracture within the left C7 transverse process. * Pathologic burst fracture at T2. No associated retropulsion. * A 6.2 cm peripherally calcified cystic left thyroid nodule. Dr. Herron- ortho-spine consulted given T2 burst fracture - Assessment - metastatic renal cell carcinoma throughout the lumbar spine and pelvis. Plan at this time could consider cervical immobilization but I am not convinced this provide any significant stabilization or improvement in his outcome. It would be most likely be more uncomfortable than beneficial. He is not a surgical candidate in light of the extensive disease and type of cancer. Hypercalcemia In setting of metastatic cancer with multiple lytic lesions, also dehydration likely a component Serum calcium 11.3 on admission ionized calcium next a.m. 1.43 Given 1 time dose of zolendronic acid Hypercalcemia work-up ordered vit D level low at 9.3, PTH 12.9 nl further discussed w/ nephrology - no further work-up necessary, calcium level improved Urinary retention Urinary retention noted on imaging, hydronephrosis in setting of large right cem al mass Urias catheter placed in ED Urology consulted - Suspected right kidney cancer with numerous metastases. Patient does have right-sided hydronephrosis due the mass however creatinine is not elevated at the moment and no concern for UTI so I do not think placing a stent is necessary at this time. No acute urologic intervention necessary. Pt removed catheter overnight. Discussed and explained why it was placed - he does not wish to have it placed Monitor urine output, and bladder scan Leukocytosis Meeting SIRs criteria with WBC 19k, HR 105, lactate 3, procal of 1.38 but no clear infectious source Could be reactive given extensive cancer burden, dehydration Covered with empirically w/ Zosyn, follow blood culture WBC down to 12K No infectious source found so far[facility] History of significant tobacco use, alcohol use Endorses smoking 3 packs/day prior to time and JANESSA Delgadillo, unable to characterize length of time smoking. Also endorsing heavy alcohol use in the past DVT Ppx: IV heparin initially- stopped now Code status: Full code PCP: JANESSA Delgadillo Dispo: Admitted to PCU -> plan for hospice/ comfort care Admission and Anticipated Discharge Date Admission Date: October 10, 2022 Subjective Pt seen in follow up of weakness, back pain, poss. sepsis w/ leukocytosis, found to have renal mass and extensive metastases, hydronephrosis, hypercalcemia Currently laying in bed in NAD Per RN, pulled Urias catheter overnight. Discussed and explained why it was placed - he does not wish to have it placed Seen by oncologist, Dr. Nolan , yesterday and explained diagnosis, prognosis and treatment options - pt declined any treatment options - I discussed this w/ Dr. Nolan in detail. I then spoke to the pt myself and he confirmed with me that he does not wish to have any treatment (2 guards present at the bedside) and is interested in comfort care/ hospice. I discussed again today in the presence of 2 guards and pt is clear about diagnosis and does not wish for treatment, wants comfort care/hospice. Discussed possible hospice w/ CM in person. Per CM - sn[facility] can provide hospice services but not over the weekend. Currently pt is laying in bed , in NAD. Back pain improved, slept ok overnight. No chest pain, no shortness of breath, no abdominal pain Review of Systems Review of Systems: All systems reviewed & are unremarkable except as noted in Subjective Physical Exam Physical Exam: General Appearance: Thin/cachetic, frail, chronically ill-appearing, no apparent distress Head: normocephalic, Atraumatic Eyes: normal inspection, EOMI Neck: supple Respiratory/Chest: Normal breath sounds, CTA, No accessory muscle use Cardiovascular: S1, S2, No murmur Abdomen/GI: Soft, Non tender, Bowel sounds present Back: Tender to palpation Extremities/Musculoskeletal: normal inspection, no edema Neurologic/Psych: AAOX3, speech fluent, no facial asymmetry, moves extremities Skin: normal color, warm, +Tattoos Results & Data Results & Data Vital Signs (Past 12 Hours) Vital Signs Temp Pulse Pulse Resp BP BP Pulse Ox 10/13/22 07:33 36.5 C 96 H 20 97/66 L 95 10/12/22 22:05 99 H 10/13/22 02:55 36.4 C L 101 H 18 100/68 96 10/12/22 23:09 36.6 C 100 H 18 96/64 L 96 O2 Del Method 10/13/22 07:33 Room Air 10/12/22 22:05 10/13/22 02:55 Room Air 10/12/22 23:09 Room Air Laboratory Results 10/13/22 10/13/22 Range/Units 05:39 05:39 APTT 32.2 H (21.0-31.0) Seconds PTT Ratio 1.2 Sodium 130 L (136-145) mmol/L Potassium 4.2 (3.5-5.1) mmol/L Chloride 99 (98-107) mmol/L Carbon Dioxide 26 (21-32) mmol/L Anion Gap 5 (3-11) BUN 32 H (6-23) mg/dl Creatinine 0.99 (0.6-1.4) mg/dl Est Cr Clr Drug Dosing 64.1 ml/min Est GFR ( Amer) 92.9 ml/min Est GFR (Non-Af Amer) 80.2 ml/min BUN/Creatinine Ratio 32.3 H (10-20) Glucose 110 H (70-99(Fasting)) mg/dl Calcium 7.4 L (8.6-10.3) mg/dl Phosphorus 2.4 L (2.5-4.9) mg/dl Magnesium 1.9 (1.7-2.4) mg/dl Medications Administered Current Inpatient Medications Acetaminophen (Acetaminophen 325 Mg Tab) 650 mg PO Q4H PRN PRN Reason: Pain or Fever Stop: 11/09/22 20:29 Al Hydrox/Mg Hydrox/Simethicone (Aluminum/Magnesium Susp 30 Ml Udc) 15 ml PO Q4H PRN PRN Reason: Dyspepsia Stop: 11/09/22 20:29 Dexamethasone (Dexamethasone 1 Mg Tab) 2 mg PO [facility] Stop: 11/11/22 11:59 Last Admin: 10/12/22 12:20 Dose: 2 mg Ergocalciferol (Ergocalciferol 50,000 Units 1250 Mcg Cap) 50,000 units PO Q4D@0900 [facility] Stop: 11/16/22 09:01 Last Admin: 10/11/22 09:31 Dose: 50,000 units Lidocaine (Lidocaine 5% 1 Patch) 1 patch TD [facility] Stop: 11/11/22 11:44 Last Admin: 10/12/22 12:20 Dose: 1 patch Magnesium Hydroxide (Magnesium Hydroxide Susp 30 Ml Udc) 30 ml PO Q12H PRN PRN Reason: Constipation Stop: 11/09/22 20:29 Magnesium Oxide (Magnesium Oxide 400 Mg Tab) 400 mg PO [facility] Stop: 11/11/22 08:59 Last Admin: 10/12/22 11:23 Dose: 400 mg Miscellaneous (Remove Lidoderm Patch) 1 each N/A DAILY@2100 [facility] Stop: 11/11/22 20:59 Last Admin: 10/12/22 21:22 Dose: 1 each Morphine Sulfate (Morphine Sulfate 4 Mg/Ml 1 Ml Carp\Vial) 2 mg IV Q4H PRN PRN Reason: Pain Stop: 10/24/22 20:29 Last Admin: 10/10/22 21:35 Dose: 2 mg Ondansetron HCl (Ondansetron Inj 2 Mg/Ml 2 Ml Vial) 4 mg IV Q6H PRN PRN Reason: Nausea Stop: 11/09/22 20:29 Oxycodone HCl (Oxycodone Hcl Ir 5 Mg Tab (Immediate Release)) 5 mg PO Q4H PRN PRN Reason: Pain Stop: 10/26/22 11:22 Last Admin: 10/13/22 02:29 Dose: 5 mg Polyethylene Glycol (Polyethylene (Miralax) 17 Gm Pack) 17 gm PO DAILY PRN PRN Reason: Constipation Stop: 11/09/22 20:29
[2022-10-13] MEDS: MAGNESIUM OXIDE 400 MG TAB PO SCH (09:24)
[2022-10-13] MEDS: LIDOCAINE 5% 1 PATCH TD SCH (09:24)
[2022-10-13] MEDS: dexAMETHasone 1 MG TAB PO SCH (09:24)
[2022-10-14] MEDS: oxyCODONE HCL IR 5 MG TAB (IMMEDIATE RELEASE) PO PRN ×3 (05:24→14:03)
[2022-10-14 06:55] LABS: BUN Creatinine Ratio 35.9 (10-20); Calcium 7.4 mg/dl (8.6-10.3); Creatinine Clr Calc Pharmacy 81.5 ml/min; Est GFR (African American) 110.6 ml/min; Est GFR (Non-African American) 95.4 ml/min; Potassium 4.5 mmol/L (3.5-5.1)
--- NOTE | 2022-10-14 10:32 | Discharge Summary ---
Date of Service October 14, 2022 Admission HPI Per Admitting Provider This is a 66-year-old male from [facility] with PMH of chronic back pain who presents for evaluation of worsening acute on chronic back pain, weakness, ambulatory dysfunction over the past week. Patient is a poor historian. States he has had back pain for decades but it got worse over the past year. Also endorses associated weakness and unintentional weight loss over the past year. States he has lost 100 pounds but cannot clarify the time in which this occurred. Has intermittent hematuria but states this has been going on for years. Over the past week, weakness has become more profound to the point that patient is having to grab onto guerrero to get around. Denies any falls. Was going to have outpatient testing done but due to significant decline, was brought in from [facility] for further evaluation. Significant history of smoking 3 packs/day but cannot answer when he started or stopped smoking. 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 Endorses some issues with urinary retention but denies dysuria. No fever, chills, lightheadedness, chest pain, shortness of breath, nausea, vomiting, abdominal pain, dysuria, diarrhea or constipation. Became tearful during interview on multiple occasions. Denies any known past medical history of diabetes, high blood pressure, stroke, cancer or kidney disease. Knows that cancer runs in his family but not sure what kind. Admission Exam Per Admitting Provider General Appearance: Thin, frail, ill-appearing, no apparent distress Head: normocephalic, Atraumatic Eyes: normal inspection, EOMI Neck: supple, Trachea midline Respiratory/Chest: Normal breath sounds, CTA, No accessory muscle use Cardiovascular: S1, S2, No murmur Abdomen/GI:Soft, Non tender, Bowel sounds present Back:Tender to palpate Extremities/Musculoskeletal:normal inspection, no edema Neurologic/Psych:AAOX3, grossly no focal neurological deficits Skin: normal color, warm, +Tattoos Principal Diagnosis Renal mass, concerning for renal cell carcinoma with metastases Discharge Exam General Appearance: Thin/cachetic, frail, chronically ill-appearing, no apparent distress Head: normocephalic, Atraumatic Eyes: normal inspection, EOMI Neck: supple Respiratory/Chest: Normal breath sounds, CTA, No accessory muscle use Cardiovascular: S1, S2, No murmur Abdomen/GI: Soft, Non tender, Bowel sounds present Back: Tender to palpation Extremities/Musculoskeletal: normal inspection, no edema Neurologic/Psych: AAOX3, speech fluent, no facial asymmetry, moves extremities Skin: normal color, warm, +Tattoos Discharge Data Allergies Allergy/AdvReac Type Severity Reaction Status Date / Time No Known Allergies Allergy Verified 10/10/22 15:02 Consultations 10/10/22 17:07 ED Decision to Admit Stat 10/10/22 17:57 Consult Oncology Routine Consult Orthopedic Surgery Routine Consult Palliative Care Routine 10/10/22 22:06 Consult Urology Routine 10/11/22 08:18 Consult Nephrology Routine Ordered Studies 10/10/22 14:27 CT abd pelvis IV con only Stat IMPRESSION: 1. There is is a large infiltrative right renal mass likely representing the primary malignancy. 2. Extensive metastatic disease as described above with destructive/lytic lesions and multiple pathologic fractures. 3. Thrombus of the left common and internal iliac veins. 4. Small lytic lesion within the left femoral neck favor an impending fracture. 5. Please refer to the the same day chest CT for further evaluation of the lung bases. CT angio chest PE protocol Stat IMPRESSION: 1. No pulmonary embolus is seen. 2. Numerous lytic bony lesions are seen with associated soft tissue masses concerning for osseous metastases. Please see CT abdomen pelvis performed same day for findings below the diaphragm including right renal soft tissue mass. 3. Large rim calcified thyroid nodule is seen, if not previously evaluated, ultrasound can be performed. 4. Additional findings as above. 10/10/22 14:31 CT cervical spine wo con Stat IMPRESSION: 1. Scattered lytic lesions within the lower cervical and thoracic spine consistent with metastatic disease. 2. Pathologic nondisplaced fracture within the left C7 transverse process. 3. Pathologic burst fracture at T2. No associated retropulsion. 4. A 6.2 cm peripherally calcified cystic left thyroid nodule. Head CT [CT head/brain wo con] Stat FINDINGS: No acute intracranial hemorrhage, midline shift, intracranial mass, acute territorial ischemia or abnormal extra-axial collection. Involutional changes with ventriculomegaly, possibly on an ex vacuo basis with asymmetric dilation of the left lateral ventricle. Mild white matter hypodensities may represent a component of chronic microvascular ischemic disease. The calvarium is intact. No destructive bone lesions identified. The paranasal sinuses, mastoid air cells, and middle ear cavities are clear. IMPRESSION: No acute intracranial abnormality. 10/11/22 11:[address] IR [address] bone superficial [address] Urgent Hospital Course (1) Metastatic cancer: (2) Weakness: (3) Acute exacerbation of chronic low back pain: (4) Ambulatory dysfunction: (5) Pathologic rib fracture: (6) Burst fracture of thoracic vertebra: (7) Hypercalcemia: (8) Urinary retention: (9) Leukocytosis: (10) History of alcohol use: (11) History of tobacco use: Plan This is a 66-year-old male from [facility] with PMH of chronic back pain who presents for evaluation of worsening acute on chronic back pain, weakness, ambulatory dysfunction over the past week and was found to have extensive metastatic cancer with likely renal mass as primary malignancy. Worsening weakness Acute on chronic back pain Extensive metastatic cancer with likely renal mass as primary malignancy In setting of worsening back pain, ambulatory dysfunction, weakness Extensive metastatic disease with destructive/lytic lesions and multiple pathologic fractures, soft tissue involvement CT abd/pelvis with * a large infiltrative right renal mass likely representing the primary malignancy * extensive metastatic disease as described above with destructive/lytic lesions and multiple pathologic fractures * thrombus of the left common and internal iliac veins * small lytic lesion within the left femoral neck favor an impending fracture Chest CTA with numerous lytic bony lesions are seen with associated soft tissue masses concerning for osseous metastases. Large rim calcified thyroid nodule is seen, if not previously evaluated, ultrasound can be performed Consulted heme onc and palliative services for extensive new cancer diagnosis, prognosis and goals/treatment CT-guided right iliac bone lesion core biopsy was obtained (10/11/2022) - Preliminary pathology results from CT-guided bone biopsy suggestive of metastatic renal cell carcinoma Oncologist, Dr. Nolan discussed in detail diagnosis, prognosis, treatment options with the pt. Patient declined any treatment and instead interested in comfort care/hospice. I then confirmed with the patient myself, he is not interested in any treatment (2 guards also present at the bedside). Discussed in person with CM. Per CM, senior care is able to provide hospice care, however not over the weekend. 10/14 -discussed with Dr. Evans, [facility] physician, patient to be discharged to her care. Pain control for multiple pathologic fractures - oxycodone prn, decadron, heating pad IV heparin was started on admission for thrombus of L common and internal iliac veins. Stopped now as pt interested in comfort care/ hospice. T2 pathologic burst fracture Cervical spine CT with * Scattered lytic lesions within the lower cervical and thoracic spine consistent with metastatic disease. * Pathologic nondisplaced fracture within the left C7 transverse process. * Pathologic burst fracture at T2. No associated retropulsion. * A 6.2 cm peripherally calcified cystic left thyroid nodule. Dr. Herron- ortho-spine consulted given T2 burst fracture - Assessment - metastatic renal cell carcinoma throughout the lumbar spine and pelvis. Plan at this time could consider cervical immobilization but I am not convinced this provide any significant stabilization or improvement in his outcome. It would be most likely be more uncomfortable than beneficial. He is not a surgical candidate in light of the extensive disease and type of cancer. Hypercalcemia In setting of metastatic cancer with multiple lytic lesions, also dehydration likely a component Serum calcium 11.3 on admission ionized calcium next a.m. 1.43 Given 1 time dose of zolendronic acid Hypercalcemia work-up ordered vit D level low at 9.3, PTH 12.9 nl further discussed w/ nephrology - no further work-up necessary, calcium level improved Urinary retention Urinary retention noted on imaging, hydronephrosis in setting of large right renal mass Urias catheter placed in ED Urology consulted - Suspected right kidney cancer with numerous metastases. Patient does have right-sided hydronephrosis due the mass however creatinine is not elevated at the moment and no concern for UTI so I do not think placing a stent is necessary at this time. No acute urologic intervention necessary. Pt removed catheter overnight. Discussed and explained why it was placed - he does not wish to have it placed Monitor urine output, and bladder scan Leukocytosis Meeting SIRs criteria with WBC 19k, HR 105, lactate 3, procal of 1.38 but no clear infectious source Could be reactive given extensive cancer burden, dehydration Covered with empirically w/ Zosyn, follow blood culture WBC down to 12K No infectious [facility] History of significant tobacco use, alcohol use Endorses smoking 3 packs/day prior to time and JANESSA Delgadillo, unable to characterize length of time smoking. Also endorsing heavy alcohol use in the past Total Time Total Time Spent Total Time Spent (In Minutes): 40 Discharge Plan Discharge Items [facility] Reason For Visit: T2 BURST FX Discharge Diagnosis: Renal mass, concerning for renal cell carcinoma with metastases Activity: Per Instructions section Non-emergency contact: Primary Care Provider Call non-emergency contact if: you have any medication questions and your symptoms worsen Follow-up/Referrals: Elie RIDDLE [Primary Care Provider] - Diet: Regular Addtl Attending Provider Instructions: Patient presented with pain, weakness, weight loss, was found to have renal mass, burst fracture of thoracic vertebra, hypercalcemia, leukocytosis, urinary retention and hydronephrosis. Given renal mass, and concern for malignant process, oncology consulted. Bone biopsy obtained and preliminary pathology concerning for renal cell carcinoma with metastases. Discussed with the patient treatment options, and patient declined, and chose to be comfortable/hospice care. Discussed with Dr. Evans of [facility], and patient will be discharged to her care. Pending Studies at Discharge: Yes Studies:: Final results of bone biopsy Stand-Alone Forms: My [facility] [place] [employer] Skilled Items Patient informed of condition?: Yes Discharge Level of Care: Other Communicable Disease: No Discharge Prognosis: Other Lines: None Urinary Catheter: No Medications and DC Order Prescriptions: New oxycodone 5 mg Tablet 5 mg PO Q4H PRN (Reason: pain) Qty: 14 0RF dexamethasone 1 mg Tablet 4 mg PO BID Qty: 10 0RF Discharge Orders: Discharge Order (Routine); Ordered 10/14/22 Ordered By: Fabian Napier Admission Data Admit Date/Time: 10/10/22 17:57 Attending Provider: Fabian Napier Admit Provider: Sam Perez Primary Care Provider: Elie RIDDLE Other Providers: Kneia Nolan ; Singh Herron ; Lorena Conrad ; Sam Perez ; Hardy Oglesby ; Georgina Babin ; Renan Almeida
[2022-10-14] MEDS: MAGNESIUM OXIDE 400 MG TAB PO SCH (11:59)
[2022-10-14] MEDS: dexAMETHasone 1 MG TAB PO SCH (11:59)
[2022-10-16 06:13] LABS: Creatinine Ur 91 mg/dL (20-320); Protein, Urine Random 71 mg/dL (5-25); Ur Protein/Creat Ratio mg/g 780 mg/g creat (25-148); Urine Abnormal Protein Band 1 DNR mg/dL (NONE DETECTED); Urine Abnormal Protein Band 2 DNR mg/dL (NONE DETECTED); Urine Abnormal Protein Band 3 DNR mg/dL (NONE DETECTED)
[2022-10-18 15:56] LABS: Albumin 1.8 g/dL (3.8-4.8); Alpha 1 Globulin 0.6 g/dL (0.2-0.3); Alpha 2 Globulin 0.8 g/dL (0.5-0.9); Beta-1-Globulin 0.3 g/dL (0.4-0.6); Beta-2-Globulin 0.6 g/dL (0.2-0.5); Gamma Globulin 1.2 g/dL (0.8-1.7); Monoclonal Protein Band 1 DNR g/dL (NONE DETECTED); Monoclonal Protein Band 2 DNR g/dL (NONE DETECTED); Monoclonal Protein Band 3 DNR g/dL (NONE DETECTED); PTH Related Protein <5 pg/mL (11-20); Total Protein 5.4 g/dL (6.1-8.1); Vitamin D 1,25 <8 pg/mL (18-72); Vitamin D3,1,25 <8 pg/mL
== END 2022-10-14 14:45 | DRG 478 ==
LOC: ED 10:46 → 4W 17:57 → SUATTDRO 17:57 → 4W 19:37